=== PATIENT | male | born 1985 | race Two or more races ===

== ENCOUNTER 2018-06-14 16:29 | Inpatient (IN) | payer OTHER ==
[~2018-06-14] VITALS: Ht 188 cm; Wt 58.1 kg
[2018-06-14 17:00] VITALS: BP 114/84
[2018-06-14] MEDS ORDERED: ACETAMINOPHEN 325 MG TABLET PO PRN (17:30)
[2018-06-14] MEDS: IV D5/0.45 NACL 1,000 ML IV PRN (17:54)
[2018-06-14] MEDS ORDERED: DIATR MEGLU/DIATRIZOATE SODIUM 120 ML BOTTLE (GASTROGRAPHIN) ONE (18:30)
[2018-06-14] MEDS ORDERED: BARIUM SULFATE 98% 135 ML SUSP.RECON PO ONE (18:30)
[2018-06-14] MEDS ORDERED: MESA0.37 PO (18:31)
[2018-06-14] MEDS ORDERED: APIX5TAB PO (18:31)
[2018-06-14] MEDS ORDERED: AZAT50TA18 PO (18:31)
[2018-06-14] MEDS ORDERED: HYDR-4384 PO (18:31)
[2018-06-14] MEDS ORDERED: PRED20TA PO (18:31)
[2018-06-14] MEDS ORDERED: CHOL100040 PO (18:31)
[2018-06-14] MEDS ORDERED: FAMO20TA8 PO (18:31)
[2018-06-14] MEDS ORDERED: DOCU100C36 PO (18:31)
--- NOTE | 2018-06-14 18:38 | NUR ---
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 PATIENT A/OX4, BREATHING EVEN AND UNLABORED, DENIES NAUSEA OR VOMITING, NO ABDOMINAL PAIN AT THIS TIME. COMFORTABLE. PIV NOTED ON RIGHT HAND AND RIGHT AC. SKIN ASSESSMENT COMPLETED, SKIN PHOTOS TAKEN AND PLACED IN CHART. XR SMALL BOWEL FOLLOW THROUGH XSTILL PENDING, PER DR. TAVARES, HAVE PATIENT TRY ORAL CONTRAST FIRST IF UNABLE TO TOLERATE, TO INSERT NGT. NEEDS ATTENDED AND MET, CALL LIGHT WITHIN REACH, WILL ENDORSE TO CEREAL SUPERVISOR FOR GELA.
[2018-06-14 20:00] VITALS: BP 119/95
[2018-06-14] MEDS: ONDANSETRON HCL/PF 4 MG/2 ML VIAL IVP PRN (20:00)
[2018-06-14] MEDS: HYDROMORPHONE INJ 2 MG/ML DISP.SYRIN IV PRN (20:01)
--- NOTE | 2018-06-14 20:28 | NUR ---
MS/RN RECEIVE PATIENT AWAKE, ALERT, ORIENTED, WITH C/O ABDOMINAL PAIN 8/10, MEDICATED WITH DILAUDID 1 MG IV ORDERED. WILL MONITOR.
[2018-06-15] MEDS: HYDROMORPHONE INJ 2 MG/ML DISP.SYRIN IV PRN ×5 (01:47→22:10)
[2018-06-15] MEDS: IV D5/0.45 NACL 1,000 ML IV PRN ×2 (06:50→17:48)
[2018-06-15 07:02] LABS: BASOPHILS % (AUTO) 0.1 % (0.0-2.0); EOSINOPHILS % (AUTO) 0.9 % (0.0-6.0); HEMATOCRIT 26 % (39-51); HEMOGLOBIN 8.6 g/dL (13.5-17.5); LYMPHOCYTES # (AUTO) 1.4 /CMM (0.8-4.8); LYMPHOCYTES % (AUTO) 30.3 % (20.0-44.0); MEAN CORPUSCULAR HGB CONC 34 g/dl (31.0-36.0); MEAN CORPUSCULAR VOLUME 100 fL (80-96); MONOCYTES # (AUTO) 0.3 /CMM (0.1-1.30); NEUTROPHILS # (AUTO) 2.9 /CMM (1.8-8.9); NEUTROPHILS % (AUTO) 61.7 % (43.0-81.0); PLATELET COUNT (AUTO) 279 /CMM (150-450); RED BLOOD CELL COUNT(AUTO) 2.58 MIL/uL (4.5-6.0); WHITE BLOOD COUNT (AUTO) 4.8 K/uL (4.3-11.0)
[2018-06-15 07:09] LABS: BILIRUBIN,TOTAL 0.3 mg/dL (0.2-1.0); CALCIUM, SERUM 7.3 mg/dL (8.5-10.1); CREATININE 0.5 mg/dL (0.6-1.3); MAGNESIUM 1.9 mg/dL (1.8-2.4); POTASSIUM 3.3 mmol/L (3.5-5.1); TOTAL PROTEIN, SERUM 3.9 g/dL (6.4-8.2)
[2018-06-15 07:19] LABS: THYROID STIMULATING HORMONE 4.651 uIU/mL (0.358-3.74)
[2018-06-15 07:33] LABS: ALBUMIN 1.1 g/dL (3.4-5.0)
--- NOTE | 2018-06-15 07:35 | NUR ---
MS2/RN PATIENT IS AWAKE, COMFORTABLE, NO DISTRESS NOTED, NGT IN PLACE, NO OUTPUT NOTED, ALL NEEDS ATTENDED AT THIS TIME, WILL CONTINUE TO MONITOR.
[2018-06-15 08:00] VITALS: BP 104/77
--- NOTE | 2018-06-15 08:04 | NUR ---
RN NOTES PATIENT A/OX4, NGT OPEN TO AIR, STILL NO OUTPUT AT THIS TIME, PATIENT KEPT NPO, DENIES N/V OR ABDOMINAL PAIN AT THIS TIME. IVF INFUSING AND TOLERATING WELL, NEEDS ATTENDED AND MET, CALL LIGHT WITHIN REACH, WILL CONTINUE TO MONITOR.
[2018-06-15] MEDS ORDERED: POTASSIUM CHLORIDE 20 MEQ TAB.PRT.SR PO SCH (10:00)
[2018-06-15] MEDS: POTASSIUM CL. PREMIX PERIPHER. 50 ML IV SCH ×2 (10:40→11:39)
--- NOTE | 2018-06-15 10:55 | NUR ---
RN NOTES CALLED DR. HUNTER AND RELAYED XR BOWEL SERIES RESULT AND RECEIVED NEW ORDER FOR LOW INTERMITTENT SUCTION. ORDER NOTED AND CARRIED OUT.
[2018-06-15] MEDS ORDERED: TPN/PPN PER PHARMACY XX PRN (12:30)
[2018-06-15] MEDS ORDERED: FAT EMULSION 20% 500 ML in PREMIX 1 EA IV PRN (13:00)
[2018-06-15] MEDS: ALBUMIN 25% 25 GM in PREMIX 1 EA IV SCH ×2 (13:42→19:59)
[2018-06-15] MEDS: PANTOPRAZOLE 40 MG VIAL IV SCH (14:54)
[2018-06-15] MEDS ORDERED: METOCLOPRAMIDE HCL 10 MG/2 ML VIAL IV SCH (15:00)
[2018-06-15 16:00] VITALS: BP 111/78
--- NOTE | 2018-06-15 18:55 | NUR ---
RN NOTES PATIENT WITH NEWLY INSERTED PICC LINE ON CONNER. PATENT AND FLUSHES WELL. KEPT NPO FOR SURGERY TOMORROW WITH DR. HUNTER. CONSENTS SIGNED. TURNED AND REPOSITIONED EVERY2 HOURS, MISHEL. HEELS, ELBOWS, SACRAL COVERED WITH MEPILEX. IVF INFUSING AND TOLERATING WELL, NGT CURRENTLY ON LOW INTERMITTENT SUCTION WITH OUTPUT OF 100CC OF GREEN GASTRIC CONTENT. PATIENT DENIES N/V. NEEDS ATTENDED AND MET, CALL LIGHT WITHIN REACH, WILL ENDORSE TO SPEECH THERAPY TEACHER FOR GELA.
--- NOTE | 2018-06-15 19:04 | NUR ---
RN NOTES RECEIVED PT AWAKE, HOB ELEVATED, ON ROOM AIR AND TOLERATED WELL. PAIN ON ABDOMEN AT TOLERABLE LEVEL AT THIS TIME, /. DENIES NAUSEA AND VOMITING. NGT INTACT TO LOW INTERMITTENT SUCTION WITH GREENISH SECRETIONS NOTED. PICC LINE ON RIGHT UPPER ARM PATENT AND INTACT WITH ONGOING IVF INFUSING WELL. ABDOMEN SLIGHTLY DISTENDED. BOTH LOWER LEG ELEVATED ON PILLOWS. SAFETY MEASURES AND FALL PRECAUTION OBSERVED, WITH CALL LIGHT WITHIN REACH. KEPT COMFORTABLE AND ATTENDED. WILL CONTINUE TO MONITOR PATIENT.
[2018-06-15 20:00] VITALS: BP 118/83
--- NOTE | 2018-06-15 21:10 | NUR ---
RN NOTES PATIENT COMPLAINS OF PAIN ON HIS ABDOMEN AND BOTH LEGS, DILAUDID 1 MG GIVEN IVP. ALSO PATIENT VERBALIZES HE'S NAUSEATED, ZOFRAN 4 MG GIVEN IVP. WILL CONTINUE TO MONITOR PATIENT. Addendum: 06/15/18 at 7904 by JONATHAN GALVAN RN WRONG TIME OF ENTRY.
[2018-06-15 22:00] VITALS: BP 118/83
[2018-06-15] MEDS: ONDANSETRON HCL/PF 4 MG/2 ML VIAL IVP PRN (22:10)
--- NOTE | 2018-06-15 22:10 | NUR ---
RN NOTES PATIENT COMPLAINS OF PAIN ON HIS ABDOMEN AND BOTH LEGS, DILAUDID 1 MG GIVEN IVP. ALSO PATIENT VERBALIZES HE'S NAUSEATED, ZOFRAN 4 MG GIVEN IVP. WILL CONTINUE TO MONITOR PATIENT.
[2018-06-16] MEDS: ALBUMIN 25% 25 GM in PREMIX 1 EA IV SCH ×2 (01:22→08:18)
[2018-06-16] MEDS: HYDROMORPHONE INJ 2 MG/ML DISP.SYRIN IV PRN ×5 (02:11→22:01)
--- NOTE | 2018-06-16 02:11 | NUR ---
RN NOTES PATIENT COMPLAINS OF ABDOMINAL PAIN, DILAUDID 1 MG GIVEN IVP. WILL CONTINUE TO MONITOR.
--- NOTE | 2018-06-16 06:18 | NUR ---
RN NOTES PATIENT COMPLAINS OF ABDOMINAL PAIN, 02/15. DILAUDID 1MG GIVEN IVP. WILL CONTINUE TO MONITOR PT.
[2018-06-16] MEDS: IV D5/0.45 NACL 1,000 ML IV PRN (06:19)
--- NOTE | 2018-06-16 07:00 | NUR ---
RN NOTES PATIENT ASLEEP, BREATHING REGULAR AND UNLABORED, ON ROOM AIR AND TOLERATED WELL. KEPT NPO, NGT INTACT TO LOW INTERMITTENT SUCTION . KEPT PAIN AT TOLERABLE LEVEL WITH CURRENT REGIMEN. FOR SURGERY TODAY AT 1100, CONSENT SIGNED. ALL NEEDS ATTENDED. WILL ENDORSE TO MORNING RN FOR CONTINUITY OF CARE.
[2018-06-16 07:18] LABS: CALCIUM, SERUM 7.3 mg/dL (8.5-10.1); CREATININE 0.4 mg/dL (0.6-1.3); MAGNESIUM 1.8 mg/dL (1.8-2.4); PHOSPHORUS 2.2 mg/dL (2.5-4.9)
[2018-06-16 08:00] VITALS: BP 113/90
--- NOTE | 2018-06-16 08:00 | NUR ---
MS RN NOTES PATIENT IN BED RESTING ALERT, ORIENTED X3. PATIENT DENIES ANY PAIN OR DISCOMFORT. BED IN LOW LOCKED POSITION. CALL LIGHT WITHIN REACH. PICC LINE INTACT PATENT. WILL CONTINUE TO MONITOR.
--- NOTE | 2018-06-16 08:47 | NUR ---
WOUND CARE CONSULT: PT PRESENTS WITH SCARRING TO SACRUM AND BILATERAL ELBOWS, PRESENT ON ADMISSION. DRY FLAKY SKIN NOTED TO LOWER EXTREMITIES WELL PITTING EDEMA, ESPECIALLY RT ANKLE AREA. RECOMMENDATIONS MADE FOR SKIN PROTECTION. DISCUSSED WITH NURSING STAFF. WILL SEE PRN. CURRENT [place] SCORE IS 11. [facility] L[facility] AIRLOSS BED TO BE PLACED. MD IN AGREEMENT WITH PLAN OF CARE. Addendum: 06/16/18 at 0849 by CALIN VEGA WNDNU Amended: Links added.
[2018-06-16] MEDS: POTASSIUM CL. PREMIX PERIPHER. 50 ML IV SCH ×5 (11:41→16:55)
[2018-06-16] MEDS ORDERED: TPN/PPN PER PHARMACY XX PRN (12:00)
[2018-06-16] MEDS ORDERED: TPN BAG #2 IV PRN ×6 (13:30)
[2018-06-16] MEDS ORDERED: DEXTROSE 50%-WATER 50 ML DISP.SYRIN IV PRN (14:00)
[2018-06-16] MEDS ORDERED: INSULIN REGULAR, HUMAN 100 UNIT/ML 3 ML VIAL SQ PRN (14:00)
[2018-06-16] MEDS ORDERED: FEE TPN 1 MIN EA MC ONE (14:15)
[2018-06-16] MEDS: PANTOPRAZOLE 40 MG VIAL IV SCH (15:52)
[2018-06-16 16:00] VITALS: BP 113/79
[2018-06-16] MEDS ORDERED: TPN BAG #1 IV PRN ×8 (16:00)
[2018-06-16] MEDS: BLOOD SUGAR DIAGNOSTIC 1 EACH STRIP IN SCH ×2 (17:57→23:21)
--- NOTE | 2018-06-16 19:29 | NUR ---
MS RN NOTES PATIENT IN BED RESTING NO SOB OR ACUTE DISTRESS NOTED. PATIENT IN BED RESTING COMFORTABLE. ALL DUE MEDICATIONS ADMINISTERED. ALL NEEDS MET. PATIENT STARTED ON TPN. ENDORSED CARE TO PM SHIFT.
--- NOTE | 2018-06-16 19:50 | NUR ---
MS RN NOTE: PATIENT RESTING IN BED, NO ACUTE DISTRESS NOTED. BREATHING EVEN AND UNLABORED, NO SOB NOTED. PICC LINE IN PLACE, INFUSING TPN AT 50 ML/HR. NGT IN PLACE, WITH LOW INTERMITTENT SUCTION. HOB ELEVATED. BED LOCKED AND IN LOWEST POSITION, CALL LIGHT IN REACH. WILL CONTINUE TO MONITOR.
[2018-06-16 20:00] VITALS: BP 108/73
--- NOTE | 2018-06-16 22:10 | NUR ---
MS RN NOTE: PATIENT COMPLAINS OF ABDOMINAL PAIN 01/16, DILAUDID 1MG IV GIVEN PER MD ORDER. WILL CONTINUE TO MONITOR.
--- NOTE | 2018-06-16 23:20 | NUR ---
MS LEONE NOTE: PATIENT BLOOD SUGAR LEVEL 83MG/DL, NO INSULIN NEEDED PER SLIDING SCALE. NO S/S OF HYPER/HYPOGLYCEMIA NOTED. WILL CONTINUE TO MONITOR. Addendum: 06/17/18 at 0620 by LIANNA KRISHNAMURTHY RN PATIENT TPN INCREASE TO 75ML/HR.
[2018-06-17] VITALS (10 sets, daily range): BP systolic 103–116; BP diastolic 73–88
[2018-06-17] MEDS: ONDANSETRON HCL/PF 4 MG/2 ML VIAL IVP PRN (03:10)
[2018-06-17] MEDS: HYDROMORPHONE INJ 2 MG/ML DISP.SYRIN IV PRN (03:10)
--- NOTE | 2018-06-17 03:20 | NUR ---
MS RN NOTE: PATIENT COMPLAINS OF ABDOMINAL PAIN 9/10, DILAUDID 1MG IV GIVEN PER MD ORDER. PATIENT ALSO COMPLAINS OF NAUSEA, ZOFRAN 4MG IV GIVEN PER MD ORDER. WILL CONTINUE TO MONITOR.
[2018-06-17] MEDS: BLOOD SUGAR DIAGNOSTIC 1 EACH STRIP IN SCH ×4 (06:09→23:47)
--- NOTE | 2018-06-17 06:15 | NUR ---
MS RN NOTE: PATIENT RESTING IN BED, NO ACUTE DISTRESS NOTED. BREATHING EVEN AND UNLABORED, NO SOB NOTED. PICC LINE IN PLACE, INFUSING TPN AT 75 ML/HR. NGT IN PLACE, WITH LOW INTERMITTENT SUCTION WITH GREEN DRAINAGE. HOB ELEVATED. PATIENT FOR SURGERY THIS MORNING, PATIENT HAD BEEN NPO, CONSENT SIGNED AND IN CHART. PATIENT BLOOD SUGAR LEVEL 85MG/DL, NO INSULIN NEEDED PER SLIDING SCALE. BED LOCKED AND IN LOWEST POSITION, CALL LIGHT IN REACH. WILL ENDORSE TO DAY NURSE TO CONTINUE WITH PLAN OF CARE.
[2018-06-17] MEDS ORDERED: MIDAZOLAM HCL 2 MG/2ML VIAL ONE (07:00)
[2018-06-17] MEDS ORDERED: FENTANYL PF 100MCG/2ML AMPUL ONE ×2 (07:01)
[2018-06-17] MEDS ORDERED: MEPERIDINE HCL/PF 100 MG/ML DISP.SYRIN ONE (07:02)
[2018-06-17] MEDS ORDERED: ROCURONIUM BROMIDE 50 MG/5 ML ONE (07:02)
[2018-06-17] MEDS ORDERED: FAMOTIDINE/PF INJ 20 MG/2 ML VIAL IV ONE (07:03)
[2018-06-17 07:06] LABS: ALBUMIN 2.2 g/dL (3.4-5.0); CALCIUM, SERUM 7.7 mg/dL (8.5-10.1); CREATININE 0.4 mg/dL (0.6-1.3); MAGNESIUM 1.7 mg/dL (1.8-2.4); PHOSPHORUS 2.4 mg/dL (2.5-4.9); POTASSIUM 3.3 mmol/L (3.5-5.1)
[2018-06-17 07:08] LABS: PREALBUMIN 13.9 MG/DL (18.0-35.7)
[2018-06-17] MEDS ORDERED: ANESTHESIA TRAY IN PYXIS 1 EA TRAY MC ONE (07:13)
[2018-06-17] MEDS ORDERED: LIDOCAINE HCL/PF 1% 30 ML SDV ONE (07:13)
[2018-06-17] MEDS ORDERED: BUPIVACAINE 0.5 % PF 150 MG/30 ML VIAL ONE (07:13)
[2018-06-17] MEDS ORDERED: BUPIVACAINE MPF 0.5% W/EPI INJ 30 ML VIAL ONE (07:13)
--- NOTE | 2018-06-17 07:46 | NUR ---
MS/RN NOTES PATIENT IN SURGERY AT THIS TIME.
[2018-06-17] MEDS ORDERED: METRONIDAZOLE 500MG/ NS 100ML 100 ML IV ONE (08:10)
[2018-06-17] MEDS ORDERED: METOCLOPRAMIDE HCL 10 MG/2 ML VIAL IV PRN (11:00)
[2018-06-17] MEDS ORDERED: TPN BAG #2 IV PRN ×6 (11:17)
[2018-06-17] MEDS ORDERED: TPN BAG #3 IV PRN ×8 (11:30)
--- NOTE | 2018-06-17 11:30 | NUR ---
MS/RN PATIENT RETURNED FROM SURGERY ACCOMPANIED BY 2 RNS VIA BED. STILL NOTED PATIENT LETHARGIC, ABLE TO ANSWER YES OR NO QUESTION WITH HEAD NODDING. NOTED WITH NG TUBE IN PLACE FOR SUCTION, ATTACHED TO SUCTIONING MACHINE. F/C IN PLACE INTACT AND DRAINING WELL. NOTED WITH KLEBER DRAINAGE, DRAINING SEROSANGINOUS FLUID. ALL NEEDS ATTENDED TO AT THIS TIME. V/S 104/75,84,18,97.8,100%
[2018-06-17 11:44] LABS: EOSINOPHILS % (AUTO) 0.5 % (0.0-6.0); HEMATOCRIT 23 % (39-51); HEMOGLOBIN 7.5 g/dL (13.5-17.5); LYMPHOCYTES # (AUTO) 1.4 /CMM (0.8-4.8); LYMPHOCYTES % (AUTO) 29.7 % (20.0-44.0); MEAN CORPUSCULAR HGB CONC 33 g/dl (31.0-36.0); MEAN CORPUSCULAR VOLUME 100 fL (80-96); MONOCYTES # (AUTO) 0.3 /CMM (0.1-1.30); MONOCYTES % (AUTO) 6.7 % (2.0-12.0); NEUTROPHILS # (AUTO) 2.9 /CMM (1.8-8.9); NEUTROPHILS % (AUTO) 62.1 % (43.0-81.0); PLATELET COUNT (AUTO) 289 /CMM (150-450); RED BLOOD CELL COUNT(AUTO) 2.25 MIL/uL (4.5-6.0); WHITE BLOOD COUNT (AUTO) 4.6 K/uL (4.3-11.0)
--- NOTE | 2018-06-17 12:21 | NUR ---
MS/RN RECEIVED ORDER FROM DR HUNTER TO TRANSFUSE 2ND UNIT OF BLOOD WHEN PATIENT BACK ON FLOOR AFTER SURGERY. ORDERS NOTED AND CARRIED OUT.
[2018-06-17] MEDS ORDERED: POTASSIUM CL. PREMIX PERIPHER. 50 ML IV SCH (13:00)
[2018-06-17] MEDS: HYDROMORPHONE INJ 0.5 MG/0.5 ML SYRINGE IV PRN ×3 (15:33→22:34)
[2018-06-17] MEDS: ANCEF 1 GM/50 ML D5W IV SCH ×4 (16:40→23:40)
[2018-06-17] MEDS: PANTOPRAZOLE 40 MG VIAL IV SCH (16:42)
[2018-06-17] MEDS: IV D5/0.45 NACL 1,000 ML IV PRN (16:47)
[2018-06-17 17:35] LABS: HEMOGLOBIN 10.4 g/dL (13.5-17.5); LYMPHOCYTES # (AUTO) 0.3 /CMM (0.8-4.8)
[2018-06-17 17:46] LABS: CALCIUM, SERUM 7.2 mg/dL (8.5-10.1); CREATININE 0.5 mg/dL (0.6-1.3); POTASSIUM 3.3 mmol/L (3.5-5.1)
[2018-06-17] MEDS: METRONIDAZOLE 500MG/ NS 100ML 500 MG in PREMIX 1 EA IV SCH (18:03)
[2018-06-17 18:46] LABS: BASOPHILS % (AUTO) 0.1 % (0.0-2.0); HEMATOCRIT 31 % (39-51); LYMPHOCYTES % (AUTO) 1.9 % (20.0-44.0); MEAN CORPUSCULAR HGB CONC 33 g/dl (31.0-36.0); MEAN CORPUSCULAR VOLUME 92 fL (80-96); MONOCYTES # (AUTO) 0.3 /CMM (0.1-1.30); MONOCYTES % (AUTO) 1.5 % (2.0-12.0); NEUTROPHILS # (AUTO) 16.7 /CMM (1.8-8.9); NEUTROPHILS % (AUTO) 96.5 % (43.0-81.0); PLATELET COUNT (AUTO) 222 /CMM (150-450); RED BLOOD CELL COUNT(AUTO) 3.38 MIL/uL (4.5-6.0); WHITE BLOOD COUNT (AUTO) 17.3 K/uL (4.3-11.0)
--- NOTE | 2018-06-17 19:00 | NUR ---
Alert and orientated [employer] monse introduced and noted he did up to 1000ml, encouraged, JPRATT emptied 60 reactivated, NGT to low suction drainage green lite in color. ABD flat no BS audible via auscultation. Remains NPO
--- NOTE | 2018-06-17 19:05 | NUR ---
MS/RN CLOSING NOTE PATIENT IN BED IN STABLE CONDITION. A/O X 4. NO SIGNS OF ACUTE DISTRESS. NO COMPLAIN OF PAIN OR DISCOMFORT. ON NGT SUCTION FOR GASTRIC DECOMPRESSION. NOTED ABDOMEN KLEBER DRAINAGE. FC INTACT AND FLOWING FREELY. ALL NEEDS ATTENDED TO. CALL LIGHT WITHIN REACH. WILL ENDORSE TO NEXT SHIFT FOR CONTINUITY OF CARE.
[2018-06-17 21:50] LABS: BAND % (MANUAL) 15 % (0.0-5.0); LYMPHOCYTES % (MANUAL) 5 % (16-48); MONOCYTES % (MANUAL) 1 % (0-11.0); NEUTROPHILS % (MANUAL) 79 (42-76)
[2018-06-17] MEDS: MINERAL OIL/PETROLATUM,WHITE 120 GM JAR TP PRN (23:38)
[2018-06-17] MEDS: Z GUARD REMEDY 2 OZ OINT TP PRN (23:39)
[2018-06-18] MEDS: METRONIDAZOLE 500MG/ NS 100ML 500 MG in PREMIX 1 EA IV SCH ×2 (00:42→09:25)
[2018-06-18] MEDS: HYDROMORPHONE INJ 0.5 MG/0.5 ML SYRINGE IV PRN ×5 (00:49→15:32)
[2018-06-18 01:21] LABS: BASOPHILS % (AUTO) 0.4 % (0.0-2.0); HEMATOCRIT 28 % (39-51); HEMOGLOBIN 9.4 g/dL (13.5-17.5); LYMPHOCYTES # (AUTO) 1.4 /CMM (0.8-4.8); LYMPHOCYTES % (AUTO) 10.4 % (20.0-44.0); MEAN CORPUSCULAR HGB CONC 33 g/dl (31.0-36.0); MEAN CORPUSCULAR VOLUME 92 fL (80-96); MONOCYTES # (AUTO) 0.5 /CMM (0.1-1.30); MONOCYTES % (AUTO) 3.4 % (2.0-12.0); NEUTROPHILS # (AUTO) 11.7 /CMM (1.8-8.9); NEUTROPHILS % (AUTO) 85.8 % (43.0-81.0); PLATELET COUNT (AUTO) 209 /CMM (150-450); RED BLOOD CELL COUNT(AUTO) 3.08 MIL/uL (4.5-6.0); WHITE BLOOD COUNT (AUTO) 13.6 K/uL (4.3-11.0)
[2018-06-18] MEDS: BLOOD SUGAR DIAGNOSTIC 1 EACH STRIP IN SCH ×3 (06:03→18:20)
--- NOTE | 2018-06-18 06:25 | NUR ---
ending notes: alert and orientated. medicated times3 for abd pain thru the night last dose 0600. he commented the pain medication not enough, will endorse to the on coming shift to ask the md to assess patient. i noticed after medicatedcating him, he would fall asleep. casimiro put out 140ml sersang to clear yellow toward morning. ngt output 100ml this 12 hours green in color
--- NOTE | 2018-06-18 07:43 | NUR ---
RN MS OPENING NOTES RECEIVED PATIENT A/O X4 IN BED ON ROOM AIR NO SIGNS OR SYMPTOMS OF RESPIRATORY DISTRESS ACUTE PAIN OF 10/10 TO ABDOMEN LAST DILAUDID @ 0600. NGT CONNECTED TO INTERMITTENT SUCTION GREEN BILE IN CANISTER. GIRON CATH DRAINING CLEAR YELLOW URINE.SAFETY PRECAUTIONS IN PLACE BED IN LOW POSITION CALL LIGHT WITHIN REACH
[2018-06-18 08:00] VITALS: BP 108/71
[2018-06-18 08:06] LABS: BASOPHILS % (AUTO) 0.1 % (0.0-2.0); EOSINOPHILS % (AUTO) 0.2 % (0.0-6.0); HEMATOCRIT 27 % (39-51); HEMOGLOBIN 8.8 g/dL (13.5-17.5); LYMPHOCYTES # (AUTO) 1.9 /CMM (0.8-4.8); LYMPHOCYTES % (AUTO) 15.3 % (20.0-44.0); MEAN CORPUSCULAR HGB CONC 33 g/dl (31.0-36.0); MEAN CORPUSCULAR VOLUME 92 fL (80-96); MONOCYTES # (AUTO) 0.5 /CMM (0.1-1.30); NEUTROPHILS % (AUTO) 80.4 % (43.0-81.0); PLATELET COUNT (AUTO) 211 /CMM (150-450); RED BLOOD CELL COUNT(AUTO) 2.87 MIL/uL (4.5-6.0); WHITE BLOOD COUNT (AUTO) 12.5 K/uL (4.3-11.0)
[2018-06-18] MEDS: ANCEF 1 GM/50 ML D5W IV SCH ×2 (08:15)
[2018-06-18 08:34] LABS: CALCIUM, SERUM 7.6 mg/dL (8.5-10.1); CREATININE 0.5 mg/dL (0.6-1.3); MAGNESIUM 2.1 mg/dL (1.8-2.4); PHOSPHORUS 2.8 mg/dL (2.5-4.9); POTASSIUM 3.8 mmol/L (3.5-5.1)
[2018-06-18] MEDS: ENOXAPARIN SODIUM 40 MG/0.4 ML DISP.SYRIN SQ SCH (09:24)
[2018-06-18] MEDS ORDERED: TPN BAG #5 IV PRN ×8 (11:30)
[2018-06-18] MEDS: TPN BAG #4 IV PRN ×12 (11:52→22:25)
--- NOTE | 2018-06-18 11:57 | NUR ---
MS NOTES TPN CHANGED TO 100ML/HR PER ORDER FOR NUTRITIONAL INTAKE BS 114 MG/DL
[2018-06-18] MEDS: PANTOPRAZOLE 40 MG VIAL IV SCH (15:32)
[2018-06-18] MEDS: FAT EMULSION 20% 500 ML in PREMIX 1 EA IV SCH (15:32)
[2018-06-18] MEDS: HYDROMORPHONE 1 MG/1 ML DISP.SYRIN IV PRN ×2 (15:57→19:45)
[2018-06-18 16:00] VITALS: BP 111/76
--- NOTE | 2018-06-18 18:00 | NUR ---
GIRON CATH REMOVED NO S/S OF BLEEDING OR BLEEDING NOTED. URINAL GIVEN TO PATIENT
--- NOTE | 2018-06-18 19:00 | NUR ---
RN CLOSING NOTES PATIENT AWAKE IN BED A/O X4. NO SIGNS OR SYMPTOMS OF RESPIRATORY DISTRESS OR ACUTE PAIN . LAST DILAUDID GIVEN @ 1600 NEXT DUE 1999. SAT AT BEDSIDE WITH PT USING SPIROMETER WITH INSPIRATION OF 1500. 150 ML SERICIGENOUS DRAINAGE FROM KLEBER. MINIMAL DRAINAGE FORM NGT ON LOW INTERMITTENT SUCTION. REMAINS NPO. DRESSING DRAINING SMALL AMOUNTS OF BLOOD MD AWARE. SAFETY PRECAUTIONS IN PLACE BED IN LOW POSITION CALL LIGHT WITHIN REACH. GELA
[2018-06-18 20:00] VITALS: BP 116/77
[2018-06-19] MEDS: BLOOD SUGAR DIAGNOSTIC 1 EACH STRIP IN SCH ×4 (00:03→17:17)
[2018-06-19] MEDS: HYDROMORPHONE 1 MG/1 ML DISP.SYRIN IV PRN ×6 (00:03→21:38)
--- NOTE | 2018-06-19 03:15 | NUR ---
MS RN NOTES PT NOTED TO HAVE DISCOLORATION AT SACRAL AREA. POSSIBLE DTI. PT NON COMPLIANT WITH TURNING AND REPOSITIONING. PT REINSTRUCTED ON TURNING AND REPOSITIONING EVERY 2 HOURS AND NEEDED BUT PT REFUSING D/T TO POST OP PAIN UPON MOVEMENT. WILL CONTINUE TO MONITOR.
[2018-06-19] MEDS: ONDANSETRON HCL/PF 4 MG/2 ML VIAL IVP PRN (04:00)
--- NOTE | 2018-06-19 06:29 | NUR ---
MS RN NOTES AWAKE & RESPONSIVE. NOT IN ANY DISTRESS. NO SOB NOTED. DENIES ANY PAIN OR DISCOMFORT AT THIS TIME. WITH TPN & LIPIDS INFUSING WELL. AM CARE DONE. MONITORED ACCORDINGLY. CALL LIGHT WITHIN REACH. BED IN LOWEST POSITION. SR UP X 2 FOR SAFETY. WILL ENDORSE TO NEXT SHIFT.
[2018-06-19 06:43] LABS: BASOPHILS % (AUTO) 0.2 % (0.0-2.0); EOSINOPHILS % (AUTO) 0.4 % (0.0-6.0); HEMATOCRIT 24 % (39-51); LYMPHOCYTES # (AUTO) 1.4 /CMM (0.8-4.8); LYMPHOCYTES % (AUTO) 10.3 % (20.0-44.0); MEAN CORPUSCULAR HGB CONC 34 g/dl (31.0-36.0); MEAN CORPUSCULAR VOLUME 92 fL (80-96); MONOCYTES # (AUTO) 0.5 /CMM (0.1-1.30); NEUTROPHILS # (AUTO) 11.2 /CMM (1.8-8.9); NEUTROPHILS % (AUTO) 85.1 % (43.0-81.0); PLATELET COUNT (AUTO) 201 /CMM (150-450); RED BLOOD CELL COUNT(AUTO) 2.58 MIL/uL (4.5-6.0); WHITE BLOOD COUNT (AUTO) 13.2 K/uL (4.3-11.0)
[2018-06-19 07:07] LABS: CALCIUM, SERUM 7.1 mg/dL (8.5-10.1); CREATININE 0.4 mg/dL (0.6-1.3); PHOSPHORUS 1.8 mg/dL (2.5-4.9); POTASSIUM 3.6 mmol/L (3.5-5.1)
[2018-06-19 08:00] VITALS: BP 110/68
--- NOTE | 2018-06-19 08:00 | NUR ---
RN NOTES RECEIVED PATIENT IN THE BED A/A/O X4, PATIENT HAS NG TUBE ON LOW SUCTION, ALSO KLEBER -60 ML EMPTIED, PATIENT WAS COMPLAINING LOWER RIGHT SIDE PAIN OF ABDOMEN. PATIENT NPO. INFUSING LIPIDS ON RIGHT UPPER ARM INTACT PICC LINE, AND TPN. PATIENT HAS NO ACUTE RESPIRATORY DISTRESS, UNLABORED, V/S STABLE. BOWL SOUNDS HYPOACTIVE. CALL LIGHT WITHIN TI REACH, SAFETY PRECAUTION MAINTAINED ALL THE TIME.
--- NOTE | 2018-06-19 08:55 | NUR ---
RN NOTES ADMINISTERED DILAUDID 1 MG/ML IV PUSH FOR RIGHT LOWER SIDE OF ABDOMINAL PAIN PER PATIENT REQUEST 11/15, INFUSING NEW BAG OF TPN AT 100 ML/HR ON RIGHT UPPER PICC LINE, ABDOMINAL DRESSING INTACT, CALL LIGHT WITHIN TO REACH. CONTINUED MONITORING.
[2018-06-19] MEDS: ENOXAPARIN SODIUM 40 MG/0.4 ML DISP.SYRIN SQ SCH (09:02)
--- NOTE | 2018-06-19 12:01 | NUR ---
RN NOTES BS-98 MG/DL, NO COVEERAGE GIVEN, CLAMP NG TUBE PER DR KC'S ORDER IN 4 HR, IF RESIDUAL LESS THAN 100ML REMOVE NG TUBE, IF RESIDUAL GRADED THAN 100 CONTINUED SUCTIONING. PATIENT HAS EDEMA ON BILATERAL LOWER EXTREMITIES, USING PILLOW TO ELEVATED, CALL LIGHT WITHIN TO REACH, CONTINUED MONITORING.
--- NOTE | 2018-06-19 13:13 | NUR ---
RN NOTES ADMINISTERED DILAUDID 1 MG/ML IV PUSH FOR LOWER ABDOMINAL PAIN 12/16 PER PATIENT REQUEST, V/S TAKEN BP 118/70, P-70, CONTINUED MONITORING.
[2018-06-19] MEDS ORDERED: TPN BAG #6 IV PRN ×6 (14:00)
[2018-06-19] MEDS ORDERED: TPN BAG #7 IV PRN ×8 (14:00)
--- NOTE | 2018-06-19 15:30 | NUR ---
RN NOTES CONFECTED NG TUBE BACK LOW SUCTIONING, PATIENT STABLE, NO NAUSEA/VOMITING, MEDICATION WERE ADMINISTERED FOR PAIN EFFECTIVE. CONTINUED MONITORING.
[2018-06-19] MEDS: PANTOPRAZOLE 40 MG VIAL IV SCH (15:53)
[2018-06-19 16:00] VITALS: BP 115/78
--- NOTE | 2018-06-19 17:17 | NUR ---
RN NOTES ADMINISTERED DILAUDID 1 MG/ ML IV PUSH FOR RIGHT LOWER ABDOMINAL PAIN 11/15 PER PATIENT REQUEST. DAD NEXT TO THE BED, BS-95 MG/DL. CONTINUED MONITORING.
--- NOTE | 2018-06-19 17:33 | NUR ---
RN NOTES REMOVED NG TUBE AT TIS TIME RESIDUAL IS 80 ML, PATIENT TOLERATED WELL, NO SOB, NO NAUSEA/VOMITING, PATIENT SITTING IN THE BED, CALL LIGHT WITHIN TO REACH. SAFETY PRECAUTION MAINTAINED ALL THE TIME.
--- NOTE | 2018-06-19 18:30 | NUR ---
RN NOTES PATIENT STABLE, NO ACUTE RESPIRATORY DISTRESS, PATIENT NPO, INFUSING TPN ON RIGHT PICC LINE INTACT. PATIENT REFUSED NAUSEA/VOMITING, MEDICATION WERE ADMINISTERED EFFECTIVE. PATIENT SITTING IN THE BED. V/S STABLE. CALL LIGHT WITHIN TO REACH. ENDORSED ONCOMING NURSE FOR PLAN OF CARE.
--- NOTE | 2018-06-19 19:30 | NUR ---
RN MS CLOSING NOTES RECEIVED PT IN BED AWAKE ALERT ORIENTED X4 BREATHING EVEN AND UNLABORED ON ROOM AIR, NO COUGH, CONGESTION OR SOB NOTED. NO COMPLAINT OF PAIN OR DISCOMFORT AT THE MOMENT. RVA PICC LINE IN PLACE WITH TPN @100ML AND D5 1/2 NS @25ML/HR. TRISTAN GARNER IN PLACE DRAINING FLUID FROM L LOWER ABDOMEN. BED IN LOWEST LOCKED POSITION CINTHIA LIGHT WITHIN REACH AT ALL TIMES, WILL CONTINUE TO MONITOR.
[2018-06-19 20:00] VITALS: BP 115/76
[2018-06-20] MEDS: BLOOD SUGAR DIAGNOSTIC 1 EACH STRIP IN SCH ×4 (00:07→17:23)
[2018-06-20] MEDS: HYDROMORPHONE 1 MG/1 ML DISP.SYRIN IV PRN ×3 (01:30→09:35)
--- NOTE | 2018-06-20 06:40 | NUR ---
RN MS CLOSING NOTES PT PT REMAINS IN BED AWAKE ALERT ORIENTED X4 BREATHING EVEN AND UNLABORED ON ROOM AIR, NO COUGH, CONGESTION OR SOB NOTED. NO COMPLAINS OF PAIN 09/15. RVA PICC LINE IN PLACE WITH TPN @100ML BAG #6 AND D5 1/2 NS @25ML/HR. TRISTAN GARNER IN PLACE DRAINING FLUID FROM L LOWER ABDOMEN. BED IN LOWEST LOCKED POSITION CINTHIA LIGHT WITHIN REACH AT ALL TIMES, WILL CONTINUE TO MONITOR.
[2018-06-20 06:50] LABS: BASOPHILS % (AUTO) 0.4 % (0.0-2.0); EOSINOPHILS % (AUTO) 0.5 % (0.0-6.0); HEMATOCRIT 22 % (39-51); HEMOGLOBIN 7.4 g/dL (13.5-17.5); LYMPHOCYTES # (AUTO) 1.1 /CMM (0.8-4.8); LYMPHOCYTES % (AUTO) 11.3 % (20.0-44.0); MEAN CORPUSCULAR HGB CONC 34 g/dl (31.0-36.0); MEAN CORPUSCULAR VOLUME 93 fL (80-96); MONOCYTES # (AUTO) 0.5 /CMM (0.1-1.30); MONOCYTES % (AUTO) 5.5 % (2.0-12.0); NEUTROPHILS # (AUTO) 8.1 /CMM (1.8-8.9); NEUTROPHILS % (AUTO) 82.3 % (43.0-81.0); PLATELET COUNT (AUTO) 199 /CMM (150-450); RED BLOOD CELL COUNT(AUTO) 2.33 MIL/uL (4.5-6.0); WHITE BLOOD COUNT (AUTO) 9.9 K/uL (4.3-11.0)
[2018-06-20 07:04] LABS: CREATININE 0.4 mg/dL (0.6-1.3); MAGNESIUM 1.7 mg/dL (1.8-2.4); POTASSIUM 3.7 mmol/L (3.5-5.1)
--- NOTE | 2018-06-20 07:30 | NUR ---
RN OPENING NOTES RECEIVED PT IN BED AWAKE. ALERT AND ORIENTED X4, ABLE TO MAKE NEEDS KNOWN. TOLERATING ROOM AIR. NOT IN ANY FORM OF DISTRESS. NO SOB. NO COMPLAINT OF PAIN OR DISCOMFORT AT THE MOMENT. CONNER PICC LINE IN PLACE WITH TPN @100ML AND D5 1/2 NS @25ML/HR. TRISTAN GARNER IN PLACE DRAINING FLUID FROM L LOWER ABDOMEN. KEPT PATIENT SAFE AND COMFORTABLE. BED IN LOWEST LOCKED POSITION, CINTHIA LIGHT WITHIN REACH AT ALL TIMES, HOB ELEVATED. WILL CONTINUE TO MONITOR ACCORDINGLY.
[2018-06-20 08:00] VITALS: BP 113/69
[2018-06-20] MEDS: ENOXAPARIN SODIUM 40 MG/0.4 ML DISP.SYRIN SQ SCH (08:25)
[2018-06-20] MEDS: IV D5/0.45 NACL 1,000 ML IV PRN (09:40)
--- NOTE | 2018-06-20 11:00 | NUR ---
RN NOTES MEPILEX ON SACRUM IN PLACE
--- NOTE | 2018-06-20 11:04 | NUR ---
DR HUNTER AT BEDSIDE. NEW ORDERS OF DILAUDID 1.5MG PRN Q2HRS AND CLEAR LIQUID DIET NOTED AND WILL CARRY OUT
[2018-06-20] MEDS: Magnesium 1GM/D5W 100ML PREMIX 100 ML IV SCH ×3 (11:24→15:04)
--- NOTE | 2018-06-20 11:34 | NUR ---
EMPTY KLEBER DRAIN, 100CC OUTPUT.
--- NOTE | 2018-06-20 12:00 | NUR ---
RN NOTES SLITTER CUT OFF OPERATOR REPORTED THAT PATIENT DOESNT WANT TO BE REPOSITIONED BY SLITTER CUT OFF OPERATOR. PER SLITTER CUT OFF OPERATOR, PATIENT SAID HE CAN REPOSITION BY HIMSELF. WENT TO THE PATIENT AND ASK HIM IF WE CAN HELP HIM TO TURN AND REPOSITION. PATIENT SAID, "NAH, I CAN REPOSITION MYSELF." ENCOURAGED PATIENT TO BE REPOSITIONED EVERY 2HRS AND PRN FOR PRESSURE REDUCTION AND COMFORT. EXPLAINED RISKS AND BENEFITS OF REFUSAL. PATIENT SAID, "I CAN REPOSITION BY MYSELF, OK ILL CALL YOU IF I NEED HELP". WILL CONTINUE TO ENCOURAGE REPOSITIONING.
[2018-06-20] MEDS: HYDROMORPHONE INJ 0.5 MG/0.5 ML SYRINGE IV PRN ×5 (13:02→23:55)
--- NOTE | 2018-06-20 13:19 | NUR ---
EMPTY KLEBER DRAIN, 75CC OUTPUT
--- NOTE | 2018-06-20 14:00 | NUR ---
RN NOTES OFFERED TO BE TURNED AND REPOSITIONED. PATIENT REFUSED, "IM GOOD FOR NOW, MAYBE IN AWHILE". EXPLAINED RISKS AND BENEFITS AND EXPLAINED THE IMPORTANCE OF TURNING AND REPOSITIONING. WILL MONIOTR ACCORDINGLY.
--- NOTE | 2018-06-20 14:10 | NUR ---
EMPTY KLEBER DRAIN, 40CC OUTPUT
--- NOTE | 2018-06-20 14:27 | NUR ---
WOUND CARE CONSULT: PT PRESENTS WITH SACRAL DEEP TISSUE INJURY (INTACT) WELL SACRAL SCARRING WHICH WAS NOTED TO BE PRESENT ON ADMISSION. RECOMMENDATIONS MADE FOR SKIN PROTECTION AND WOUND CARE. DISCUSSED WITH NURSING STAFF. WILL SEE PRN. WAGGONER IN AGREEMENT WITH PLAN OF CARE. Addendum: 06/20/18 at 1428 by CALIN VEGA WNDNU Amended: Links added.
--- NOTE | 2018-06-20 15:00 | NUR ---
TRANSFERRED PATIENT TO ISOFLEX BED.
[2018-06-20] MEDS: PANTOPRAZOLE 40 MG VIAL IV SCH (15:33)
[2018-06-20 16:00] VITALS: BP 110/74
[2018-06-20] MEDS: FAT EMULSION 20% 500 ML in PREMIX 1 EA IV SCH (16:46)
--- NOTE | 2018-06-20 17:00 | NUR ---
RN NOTES PHYSICAL THERAPY WORKED WITH PATIENT. PATIENT STOOD UP AND WALKED A FEW STEPS. TOLERATED WELL.
--- NOTE | 2018-06-20 18:00 | NUR ---
KLEBER DRAIN EMPTIED, 100CC OUTPUT
--- NOTE | 2018-06-20 18:00 | NUR ---
OFFERED TO BE TURNED AND REPOSITIONED. PER PATIENT, "NAH, IM GOOD FOR NOW". REMINDED PATIENT TO ASK FOR HELP IF HE NEEDS REPOSITIONING, "OK" HE SAID. EXPLAINED RISKS AND BENIFITS, PATIENT UNDERSTOOD. WILL CONTINUE TO MONIOTR ACCORDINGLY.
--- NOTE | 2018-06-20 19:30 | NUR ---
RN CLOSING NOTES PATIENT IN STABLE CONDITION. ALL NEEDS ATTENDED AND PROVIDED. ALL DUE MEDICATIONS GIVEN ORDERED. KEPT PATIENT SAFE AND COMFORTABLE. BED IN LOW/LOCKED POSITION, SIDERAILS UPX2, HOB ELEVATED. CALL LIGHT IN REACH. ENDORSED TO NIGHT RN FOR GELA
--- NOTE | 2018-06-20 19:35 | NUR ---
RN MS OPENING NOTES RECEIVED PT IN BED AWAKE ALERT ORIENTED X4 BREATHING EVEN AND UNLABORED ON ROOM AIR, NO COUGH, CONGESTION OR SOB NOTED. NO COMPLAINT OF PAIN OR DISCOMFORT AT THE MOMENT. RVA PICC LINE IN PLACE WITH TPN @100ML, LIPIDS AND D5 1/2 NS @25ML/HR. TRISTAN GARNER IN PLACE DRAINING FLUID FROM L LOWER ABDOMEN. BED IN LOWEST LOCKED POSITION CINTHIA LIGHT WITHIN REACH AT ALL TIMES, WILL CONTINUE TO MONITOR.
[2018-06-20 20:00] VITALS: BP 120/77
[2018-06-20] MEDS ORDERED: TPN BAG # 8 IV PRN ×6 (20:00)
[2018-06-20] MEDS ORDERED: TPN BAG # 9 IV PRN ×8 (23:00)
[2018-06-20] MEDS: ZOLPIDEM TARTRATE 5 MG TABLET PO PRN (23:24)
[2018-06-21] MEDS: BLOOD SUGAR DIAGNOSTIC 1 EACH STRIP IN SCH ×4 (00:02→17:22)
[2018-06-21] MEDS: HYDROMORPHONE INJ 0.5 MG/0.5 ML SYRINGE IV PRN ×11 (02:05→21:29)
--- NOTE | 2018-06-21 06:22 | NUR ---
RN MS CLOSING NOTES RECEIVED PT IN BED AWAKE ALERT ORIENTED X4 BREATHING EVEN AND UNLABORED ON ROOM AIR, NO COUGH, CONGESTION OR SOB NOTED. PAIN 6/10 ON THE RIGHT LOWER QUADRANT. CONNER PICC LINE IN PLACE WITH TPN @100ML AND LIPIDS @25ML/HR. TRISTAN GARNER IN PLACE DRAINING FLUID FROM L LOWER ABDOMEN 450ML OF DRAINAGE. BED IN LOWEST LOCKED POSITION CINTHIA LIGHT WITHIN REACH AT ALL TIMES, WILL CONTINUE TO MONITOR.
[2018-06-21 07:08] LABS: BASOPHILS # (AUTO) 0.1 /CMM (0.0-0.2); BASOPHILS % (AUTO) 0.4 % (0.0-2.0); EOSINOPHILS % (AUTO) 1.2 % (0.0-6.0); HEMATOCRIT 25 % (39-51); HEMOGLOBIN 8.3 g/dL (13.5-17.5); LYMPHOCYTES # (AUTO) 1.3 /CMM (0.8-4.8); LYMPHOCYTES % (AUTO) 11.4 % (20.0-44.0); MEAN CORPUSCULAR HGB CONC 33 g/dl (31.0-36.0); MEAN CORPUSCULAR VOLUME 93 fL (80-96); MONOCYTES # (AUTO) 0.8 /CMM (0.1-1.30); MONOCYTES % (AUTO) 6.9 % (2.0-12.0); NEUTROPHILS # (AUTO) 9.3 /CMM (1.8-8.9); NEUTROPHILS % (AUTO) 80.1 % (43.0-81.0); PLATELET COUNT (AUTO) 250 /CMM (150-450); RED BLOOD CELL COUNT(AUTO) 2.67 MIL/uL (4.5-6.0); WHITE BLOOD COUNT (AUTO) 11.6 K/uL (4.3-11.0)
--- NOTE | 2018-06-21 07:10 | NUR ---
RN NOTES PATIENT A/OX4, BREATHING EVEN AND UNLABORED, NO SOB NOTED, DENIES PAIN AT THIS TIME. OFFERED TO BE REPOSITIONED BUT PER PATIENT, HE WAS JUST RECENTLY REPOSITIONED. PATIENT IS CURRENTLY ON TPN, AND INFUSING WELL. NEEDS ATTENDED, CALL LIGHT WITHIN REACH, WILL CONTINUE TO MONITOR.
[2018-06-21 07:32] LABS: CALCIUM, SERUM 7.3 mg/dL (8.5-10.1); CREATININE 0.3 mg/dL (0.6-1.3); PHOSPHORUS 2.2 mg/dL (2.5-4.9); POTASSIUM 3.4 mmol/L (3.5-5.1)
[2018-06-21 08:00] VITALS: BP 105/72
[2018-06-21] MEDS ORDERED: TPN BAG #9 IV PRN ×8 (08:24)
[2018-06-21] MEDS ORDERED: TPN BAG #10 IV PRN ×6 (08:30)
[2018-06-21] MEDS ORDERED: TPN BAG #11 IV PRN ×6 (08:30)
[2018-06-21] MEDS: ENOXAPARIN SODIUM 40 MG/0.4 ML DISP.SYRIN SQ SCH (08:51)
--- NOTE | 2018-06-21 11:30 | NUR ---
RN NOTES PATIENT SEEN BY DR. MARKS, CLARIFY IF PATIENT OK TO HAVE DVT PUMP ON BLE, PER MD, SCD'S ARE OK. ORDER IN PLACED. NOTED AND CARRIED OUT.
[2018-06-21] MEDS: PANTOPRAZOLE 40 MG VIAL IV SCH (14:35)
[2018-06-21 16:00] VITALS: BP 108/74
--- NOTE | 2018-06-21 18:11 | NUR ---
RN NOTES PATIENT A/OX4, BREATHING EVEN AND UNLABORED, NO SOB NOTED, KLEBER DRAINS WITH SEROUS OUTPUT, CURRENTLY ON TPN #9. LIPIDS ALMOST COMPLETE. PATIENT C/O ABDOMINAL PAIN, CURRENT PAIN MANAGEMENT IS EFFECTIVE. PATIENT ABLE TO TOLERATE CURRENT LIQUIDS. SEEN BY DR. HUNTER AND DIET CHANGED TO FULL LIQUID. NEEDS ATTENDED, TURNED AND REPOSITIONED EVERY 2 HOURS. CALL LIGHT WITHIN REACH, WILL ENDORSE TO UTILITY ARBORIST FOR GELA.
[2018-06-21 20:00] VITALS: BP 116/77
[2018-06-21] MEDS: ONDANSETRON HCL/PF 4 MG/2 ML VIAL IVP PRN (20:32)
[2018-06-22] MEDS: BLOOD SUGAR DIAGNOSTIC 1 EACH STRIP IN SCH ×5 (00:20→23:46)
[2018-06-22] MEDS: HYDROMORPHONE INJ 0.5 MG/0.5 ML SYRINGE IV PRN ×11 (00:20→23:05)
[2018-06-22] MEDS: ZOLPIDEM TARTRATE 5 MG TABLET PO PRN (00:20)
[2018-06-22] MEDS: ONDANSETRON HCL/PF 4 MG/2 ML VIAL IVP PRN ×3 (04:48→14:43)
--- NOTE | 2018-06-22 05:45 | NUR ---
MS RN NOTES PT CALLED AND STATED "I FELL." PT FOUND SITTING ON THE FLOOR. ASSISTED BACK TO BED. WITH ROAD SUPERVISOR AND CN. PT ABLE TO MOVE ALL EXTREMITIES OK. ROM OK. PT C/O LOWER BACK PAIN AND BOTH KNEE PAIN. PAGED AU PAIR FOR [employer]. AWAITING FOR RESPONSE.
--- NOTE | 2018-06-22 06:34 | NUR ---
MS RN NOTES BRETT NOTIFIED RE PT'S CONDITION. WITH NEW ORDERS MADE. ORDERS NOTED AND CARRIED OUT. WILL CONTINUE TO MONITOR.
--- NOTE | 2018-06-22 06:50 | NUR ---
MS RN NOTES AWAKE & RESPONSIVE. NOT IN ANY DISTRESS. NO SOB NOTED. DENIES ANY PAIN OR DISCOMFORT AT THIS TIME. WITH TPN INFUSING WELL. REINSTRUCTED WORT EXTRACTOR LIGHT USE. CALL LIGHT WITHIN REACH. BED IN LOWEST POSITION. SR UP X3 WITH BED ALARM ON FOR SAFETY. WILL ENDORSE TO NEXT SHIFT.
[2018-06-22 07:34] LABS: BASOPHILS # (AUTO) 0.1 /CMM (0.0-0.2); BASOPHILS % (AUTO) 0.7 % (0.0-2.0); EOSINOPHILS % (AUTO) 1.1 % (0.0-6.0); HEMATOCRIT 22 % (39-51); HEMOGLOBIN 7.3 g/dL (13.5-17.5); LYMPHOCYTES # (AUTO) 0.5 /CMM (0.8-4.8); LYMPHOCYTES % (AUTO) 5.8 % (20.0-44.0); MEAN CORPUSCULAR HGB CONC 34 g/dl (31.0-36.0); MEAN CORPUSCULAR VOLUME 92 fL (80-96); MONOCYTES # (AUTO) 0.9 /CMM (0.1-1.30); MONOCYTES % (AUTO) 9.4 % (2.0-12.0); NEUTROPHILS # (AUTO) 7.6 /CMM (1.8-8.9); PLATELET COUNT (AUTO) 238 /CMM (150-450); RED BLOOD CELL COUNT(AUTO) 2.37 MIL/uL (4.5-6.0); WHITE BLOOD COUNT (AUTO) 9.1 K/uL (4.3-11.0)
[2018-06-22 07:41] LABS: PREALBUMIN 8.1 MG/DL (18.0-35.7)
--- NOTE | 2018-06-22 07:45 | NUR ---
RN OPENING NOTES PT RECEIVED IN BED AT LOWEST AND LOCKED POSITION WITH SIDE RAILS UP X2, A/O X4, BREATHING EVEN AND UNLABORED, NO S/S OF PAIN OR DISTRESS NOTED AT THIS TIME, CONNER PICC IS PATENT AND INTACT, NOTED TO HAVE KLEBER DRAIN IN PLACE, SAFETY PRECAUTIONS IN PLACE, CALL LIGHT WITHIN REACH, WILL MONITOR ACCORDINGLY.
[2018-06-22 07:57] LABS: CALCIUM, SERUM 7.4 mg/dL (8.5-10.1); CREATININE 0.4 mg/dL (0.6-1.3); MAGNESIUM 1.7 mg/dL (1.8-2.4); PHOSPHORUS 2.9 mg/dL (2.5-4.9); POTASSIUM 3.9 mmol/L (3.5-5.1)
[2018-06-22 08:00] VITALS: BP 115/77
--- NOTE | 2018-06-22 08:19 | NUR ---
RN NOTE KLEBER DRAIN WAS DRAINED AT THIS TIME AND NOTED TO BE YELLOW WITH 75 ML NOTED
[2018-06-22] MEDS ORDERED: TPN BAG #13 IV PRN ×6 (08:30)
[2018-06-22] MEDS ORDERED: TPN BAG #12 IV PRN ×8 (08:30)
[2018-06-22] MEDS ORDERED: TPN BAG #14 IV PRN ×6 (08:30)
[2018-06-22] MEDS: ENOXAPARIN SODIUM 40 MG/0.4 ML DISP.SYRIN SQ SCH (08:57)
[2018-06-22] MEDS: Magnesium 1GM/D5W 100ML PREMIX 100 ML IV SCH ×2 (09:02→10:53)
--- NOTE | 2018-06-22 11:00 | NUR ---
RN NOTES KLEBER DRAIN WAS DRAINED AT THIS TIME WITH 80 ML OF SEROSANGUINEOUS FLUID NOTED
--- NOTE | 2018-06-22 12:39 | NUR ---
RN NOTE PT AT THIS TIME WAS CHANGED, GIVEN A BED BATH, AND REPOSITIONED. KLEBER WAS DRAINED AND NOTED TO HAVE 25 ML. WOUND DRESSING WAS ALSO CHANGED AT THIS TIME
[2018-06-22] MEDS: PANTOPRAZOLE 40 MG VIAL IV SCH (14:43)
[2018-06-22] MEDS: FAT EMULSION 20% 500 ML in PREMIX 1 EA IV SCH (14:43)
[2018-06-22 16:00] VITALS: BP 110/69
--- NOTE | 2018-06-22 18:31 | NUR ---
RN CLOSING NOTES PT IN BED AT LOWEST AND LOCKED POSITION, A/O X4, BREATHING EVEN AND UNLABORED ON RA, NO PAIN OR DISTRESS NOTED AT THIS TIME, CONNER PICC IS PATENT AND INTACT, NOTED TO HAVE KLEBER DRAIN IN PLACE WITH 180 ML DRAINED FOR TODAY, SAFETY PRECAUTIONS IN PLACE, CALL LIGHT WITHIN REACH, ALL NEEDS ATTENDED TO, WILL ENDORSE TO BODY ROLLING MACHINE TENDER FOR GELA.
--- NOTE | 2018-06-22 19:10 | NUR ---
RN NOTE DILAUDID GIVEN AT THIS TIME AND KLEBER DRAIN WAS DRAINED AND NOTED TO HAVE 100 ML OUTPUT
--- NOTE | 2018-06-22 19:50 | NUR ---
MS/RN OPENING NOTES RECEIVED PATIENT IN BED, AWAKE, REPORTED PAIN OF 4/10 AFTER DILAUDID IV WAS GIVE AT 1900. ALERT, ORIENTED X3, ABLE TO VERBALIZE NEEDS, INSTRUCTED TO USE CALL LIGHT FOR ASSISTANCE, INFORMED PLAN OF CARE WITH ROUNDING , BELONGINGS WITHIN REACH, RECEIVED REPORT FROM AM RN FOR GELA. IV TPN RUNNING AT 100ML/HR. REQUIRE ASSISTANCE DUE TO FALL, CONNER PICC LINE,WITH KLEBER DRAIN, WILL MONITOR.
[2018-06-22 20:00] VITALS: BP 116/77
--- NOTE | 2018-06-22 21:24 | NUR ---
PAIN MEDICATION REQUESTED BY PATIENT WITH PAIN LEVEL OF 7/10 IN ABDOMEN, DILAUDID 1.5ML/1.5MG GIVEN, AWAKE, ALERT, ABLE TO VERBALIZE NEEDS, WILL MONITOR PAIN RELIEF.
--- NOTE | 2018-06-23 | NUR ---
BS CHECK AT 68, PROVIDEDMJELLO AND CRANBERRY JUICE, TPN RUNNING.
[2018-06-23] MEDS: HYDROMORPHONE INJ 0.5 MG/0.5 ML SYRINGE IV PRN ×7 (02:58→23:48)
--- NOTE | 2018-06-23 03:00 | NUR ---
PAIN MEDICATION GIVEN FOR PAIN LEVEL 8/10. WILL MONITOR.
[2018-06-23] MEDS: BLOOD SUGAR DIAGNOSTIC 1 EACH STRIP IN SCH ×4 (06:25→22:22)
--- NOTE | 2018-06-23 06:36 | NUR ---
314-2 MS/RN NOTES PATIENT IN BED, ABLE TO MAKE NEEDS KNOWN AT ALL TIMES, SLEPT FEW HOURS, PAIN MONITORED FOR EFFECTIVENESS, ASSISTED AND FREQUENT ROUNDS, ALERT X3, VERBALIZED NEEDS AT ALL TIMES, RESPIRATIONS EVEN AND UNLABORED, TOLERATED FLUIDS.BED LOCKED, CALL LIGHTS WITHIN REACH, WILL MONITOR.
[2018-06-23 07:06] LABS: BASOPHILS # (AUTO) 0.1 /CMM (0.0-0.2); BASOPHILS % (AUTO) 0.7 % (0.0-2.0); EOSINOPHILS % (AUTO) 1.4 % (0.0-6.0); HEMATOCRIT 22 % (39-51); HEMOGLOBIN 7.5 g/dL (13.5-17.5); LYMPHOCYTES # (AUTO) 1.4 /CMM (0.8-4.8); LYMPHOCYTES % (AUTO) 13.6 % (20.0-44.0); MEAN CORPUSCULAR HGB CONC 34 g/dl (31.0-36.0); MEAN CORPUSCULAR VOLUME 92 fL (80-96); MONOCYTES # (AUTO) 1.1 /CMM (0.1-1.30); MONOCYTES % (AUTO) 10.5 % (2.0-12.0); NEUTROPHILS # (AUTO) 7.8 /CMM (1.8-8.9); NEUTROPHILS % (AUTO) 73.8 % (43.0-81.0); PLATELET COUNT (AUTO) 265 /CMM (150-450); RED BLOOD CELL COUNT(AUTO) 2.43 MIL/uL (4.5-6.0); WHITE BLOOD COUNT (AUTO) 10.6 K/uL (4.3-11.0)
[2018-06-23 07:59] LABS: CALCIUM, SERUM 7.5 mg/dL (8.5-10.1); CREATININE 0.3 mg/dL (0.6-1.3); POTASSIUM 3.9 mmol/L (3.5-5.1)
[2018-06-23 08:00] VITALS: BP 111/61
[2018-06-23 08:00] LABS: MAGNESIUM 1.8 mg/dL (1.8-2.4); PHOSPHORUS 2.5 mg/dL (2.5-4.9)
[2018-06-23] MEDS: ENOXAPARIN SODIUM 40 MG/0.4 ML DISP.SYRIN SQ SCH (08:53)
--- NOTE | 2018-06-23 10:44 | NUR ---
RN NOTE PT WALKED WITH PHYSICAL THERAPY AT THIS TIME
[2018-06-23] MEDS ORDERED: TPN BAG #15 IV PRN ×8 (12:00)
--- NOTE | 2018-06-23 12:00 | NUR ---
RN NOTE PT BLOOD GLUCOSE WAS NOTED TO BE 81 AT THIS TIME, NO INSULIN NEEDED OR GIVEN ACCORDING TO SLIDING SCALE
[2018-06-23] MEDS ORDERED: Magnesium 1GM/D5W 100ML PREMIX 100 ML IV SCH (13:00)
[2018-06-23] MEDS ORDERED: ENSURE ENLIVE CHOC 237 ML CAN PO SCH (13:00)
[2018-06-23] MEDS: MULTIVITAMINS,THERAGRAN 1 UDTAB TABLET PO SCH (13:33)
[2018-06-23] MEDS: THIAMINE HCL 100 MG TABLET PO SCH (13:33)
[2018-06-23] MEDS: ONDANSETRON HCL/PF 4 MG/2 ML VIAL IVP PRN (14:52)
[2018-06-23] MEDS: PANTOPRAZOLE 40 MG VIAL IV SCH (15:38)
[2018-06-23 16:00] VITALS: BP 130/79
[2018-06-23] MEDS ORDERED: DEXTROSE 50%-WATER 50 ML DISP.SYRIN IV PRN (16:30)
[2018-06-23] MEDS: ENSURE CLEAR 237 ML LIQUID (MIX BERRY) PO SCH (17:32)
--- NOTE | 2018-06-23 18:37 | NUR ---
RN CLOSING NOTES PT IN BED AT LOWEST AND LOCKED POSITION WITH SIDE RAILS UP X2, A/O X4, BREATHING EVEN AND UNLABORED, NO S/S OF PAIN OR DISTRESS NOTED AT THIS TIME, CONNER PICC IS PATENT AND INTACT, NOTED TO HAVE KLEBER DRAIN IN PLACE, SAFETY PRECAUTIONS IN PLACE, CALL LIGHT WITHIN REACH, ALL NEEDS ATTENDED TO, WILL ENDORSE TO GARDENER FLORIST RN FOR CONTINUITY OF CARE.
--- NOTE | 2018-06-23 19:57 | NUR ---
MS/RN OPENING NOTES RECEIVED PATIENT IN BED, AWAKE, ALERT, REPORTED PAIN OF 8/10, GRIMACE AND GUARDING, SKIN WARM TO TOUCH, ABLE TO VERBALIZE NEEDS, DISCUSSED PLAN OF CARE AND GOAL WHICH IS TO FEEL MUCH BETTER . CALL LIGHTS WITHIN REACH, BED LOCKED, WILL MONITOR. RECEIVED ENDORSEMENT FROM AM RN FOR GELA.
[2018-06-23 20:00] VITALS: BP 110/83
[2018-06-24] MEDS: ZOLPIDEM TARTRATE 5 MG TABLET PO PRN (00:59)
--- NOTE | 2018-06-24 00:59 | NUR ---
ms/rn notes patient requested for sleeping pill inability to relax.
[2018-06-24] MEDS: HYDROMORPHONE INJ 0.5 MG/0.5 ML SYRINGE IV PRN (03:25)
--- NOTE | 2018-06-24 03:25 | NUR ---
ms/rn notes severe pain reported in abdomen, grimace and guarding, administer dilaudid 1.5ml/1.5 mg ivp, to monitor pain relief.
[2018-06-24] MEDS: BLOOD SUGAR DIAGNOSTIC 1 EACH STRIP IN SCH ×3 (06:00→20:42)
--- NOTE | 2018-06-24 06:00 | NUR ---
MS/RN NOTES PATIENT AWAKE, ALERT, ABLE TO VERBALIZE NEEDS AT ALL TIMES. RESPIRATIONS EVEN AND UNLABORED. CALL LIGHTS WITHIN REACH. BED LOCKED. MONITORED FOR SAFETY. KEPT WARM AND COMFORTABLE.
[2018-06-24 07:20] LABS: BASOPHILS # (AUTO) 0.1 /CMM (0.0-0.2); BASOPHILS % (AUTO) 0.6 % (0.0-2.0); HEMATOCRIT 22 % (39-51); HEMOGLOBIN 7.5 g/dL (13.5-17.5); LYMPHOCYTES # (AUTO) 1.2 /CMM (0.8-4.8); LYMPHOCYTES % (AUTO) 12.4 % (20.0-44.0); MEAN CORPUSCULAR HGB CONC 34 g/dl (31.0-36.0); MEAN CORPUSCULAR VOLUME 92 fL (80-96); MONOCYTES # (AUTO) 0.9 /CMM (0.1-1.30); MONOCYTES % (AUTO) 9.8 % (2.0-12.0); NEUTROPHILS # (AUTO) 7.2 /CMM (1.8-8.9); NEUTROPHILS % (AUTO) 76.2 % (43.0-81.0); PLATELET COUNT (AUTO) 292 /CMM (150-450); RED BLOOD CELL COUNT(AUTO) 2.42 MIL/uL (4.5-6.0); WHITE BLOOD COUNT (AUTO) 9.4 K/uL (4.3-11.0)
--- NOTE | 2018-06-24 07:28 | NUR ---
MS RN OPENING NOTES RECEIVED PT AWAKE IN BED IN NO ACUTE SIGNS OF DISTRESS. A/O X4. ABLE TO MAKE NEEDS KNOWN, NO C/O PAIN OR DISCOMFORTS AT THIS TIME. ON ROOM AIR, BREATHING EVEN AND UNLABORED. CONNER PICC LINE INTACT AND PATENT. DRESSING ON ABDOMEN C/D/I. KLEBER DRAIN IN PLACE WITH 60 ML OUTPUT NOTED AND EMPTIED. SAFETY PRECAUTIONS IN PLACE. BED IN LOW LOCKED POSITION WITH SR UP X2. CALL LIGHT WITHIN REACH. REMINDED PT TO CALL FOR ASSISTANCE. WILL MONITOR ACCORDINGLY
[2018-06-24 08:00] VITALS: BP 116/75
[2018-06-24 08:11] LABS: CALCIUM, SERUM 7.2 mg/dL (8.5-10.1); CREATININE 0.3 mg/dL (0.6-1.3); MAGNESIUM 1.8 mg/dL (1.8-2.4); PHOSPHORUS 2.7 mg/dL (2.5-4.9); POTASSIUM 3.6 mmol/L (3.5-5.1)
[2018-06-24] MEDS: MULTIVITAMINS,THERAGRAN 1 UDTAB TABLET PO SCH (08:25)
[2018-06-24] MEDS: THIAMINE HCL 100 MG TABLET PO SCH (08:25)
[2018-06-24] MEDS: ENSURE CLEAR 237 ML LIQUID (MIX BERRY) PO SCH ×3 (08:26→17:27)
[2018-06-24] MEDS: ENOXAPARIN SODIUM 40 MG/0.4 ML DISP.SYRIN SQ SCH (08:28)
[2018-06-24] MEDS: HYDROMORPHONE INJ 2 MG/ML DISP.SYRIN IV PRN ×5 (09:16→20:59)
--- NOTE | 2018-06-24 09:17 | NUR ---
RN NOTES/PAIN MANAGEMENT PATIENT IN BED AWAKE AND NOTED GRIMACING WITH C/O ACHING PAIN ON HIS RIGHT ABDOMEN WITH SCALE OF 8/10, PRN DILAUDID 1.5MG IVP ADMINISTERED AT 0915. WILL CONTINUE TO MONITOR AND REASSESS PT.
--- NOTE | 2018-06-24 12:35 | NUR ---
RN NOTES/PAIN MANAGEMENT PATIENT IN BED AWAKE AND RESTING @ MODERTAE HIGH BACKREST POSITION. HE COMPLAINED OF ACHING PAIN ON HIS RIGHT ABDOMEN WITH SCALE OF 8/10, PRN DILAUDID 1.5MG IVP ADMINISTERED AT 1234. WILL CONTINUE TO MONITOR AND REASSESS PT
[2018-06-24] MEDS: PANTOPRAZOLE 40 MG VIAL IV SCH (15:23)
--- NOTE | 2018-06-24 15:42 | NUR ---
RN NOTES/PAIN MANAGEMENT PATIENT IN BED AWAKE AND RESTING @ MODERATE HIGH BACKREST POSITION. HE COMPLAINED OF ACHING PAIN ON HIS RIGHT ABDOMEN WITH SCALE OF 9/10, PRN DILAUDID 1.5MG IVP ADMINISTERED AT 1539. WILL CONTINUE TO MONITOR AND REASSESS PT
[2018-06-24 16:00] VITALS: BP 114/70
--- NOTE | 2018-06-24 16:39 | NUR ---
RN NOTES KLEBER DRAIN FLUIDS COLLECTED AND BROUGHT TO LAB AND LOG IN TO BODY FLUIDS LOG BOOK FOR CREATININE TEST. FANS CLERK IRENE ORDAZ.
[2018-06-24] MEDS: Magnesium 1GM/D5W 100ML PREMIX 100 ML IV SCH ×2 (18:34→20:01)
[2018-06-24] MEDS: ONDANSETRON HCL/PF 4 MG/2 ML VIAL IVP PRN (18:42)
--- NOTE | 2018-06-24 18:43 | NUR ---
RN NOTES/PAIN MANAGEMENT PATIENT IN BED AWAKE AND WATCHING TV. COMPLAINED OF ACHING PAIN ON HIS RIGHT ABDOMEN WITH SCALE OF 8/10, PRN DILAUDID 1.5MG IVP ADMINISTERED AT 1842. WILL CONTINUE TO MONITOR AND REASSESS PT
--- NOTE | 2018-06-24 19:00 | NUR ---
RN MS OPENING NOTES RECEIVED PATIENT IN BED AWAKE ALERT AND ORIENTED X4, RESPIRATIONS EVEN AND UNLABORED WITH EQUAL RISE AND FALL OF CHEST, DENIES ANY PAIN OR DISCOMFORT AT THIS TIME, KLEBER DRAIN INTACT AND PATENT, DRAINING WELL CLEAR YELLOW, EMPTIED AND CLOSED WITH PROPER SUCTION IN PLACE, URINAL AT BEDSIDE AND OFFERED, ORIENTED TO STAFF AND CALL LIGHT AND KEPT WITHIN REACH,BED ALARM IN PLACE PER PATIENT PREFERS TO HAVE IT ON AT ALL TIMES, RIGHT UPPER ARM PICC LINE INTACT AND PATENT, DRESSING CLEAN,DRY AND INTACT, FLUIDS OFFERED TOLERATED, ALL NEEDS ATTENDED AT THIS TIME, WILL CONTINUE TO MONITOR AND ATTEND TO NEEDS REMAINS COMFORTABLE AT THIS TIME. WILL CONTINUE HOURLY ROUNDING.
--- NOTE | 2018-06-24 19:07 | NUR ---
MS RN CLOSING NOTES PT IN BED AWAKE AND WATCHING TV. A/O X4. ABLE TO MAKE NEEDS KNOWN. ALL NEEDS AND CARE ATTENDED WELL. ON ROOM AIR, BREATHING EVEN AND UNLABORED. CONNER PICC LINE INTACT AND PATENT, IV MAGNESIUM @ 100ML/HR INFUSING AT THIS TIME. DRESSING ON ABDOMEN C/D/I. KLEBER DRAIN IN PLACE WITH 310 ML OUTPUT NOTED DURING THE DAY. SAFETY PRECAUTIONS IN PLACE. BED IN LOW LOCKED POSITION WITH SR UP X2. CALL LIGHT WITHIN REACH. REMINDED PT TO CALL FOR ASSISTANCE. WILL MONITOR ACCORDINGLY
[2018-06-24 20:00] VITALS: BP 104/72
--- NOTE | 2018-06-24 20:59 | NUR ---
RN MS NOTES PATIENT COMPLAINT OF PAIN TO RIGHT SIDE ABDOMEN 01/16 , COMPLAINT OF ACHY PAIN, REQUESTING FOR PAIN MEDICATION DILAUDID, VS TAKEN WNL.104/72,87,19,98.1,99%. DILAUDID PRN GIVEN ORDERED 1.5MG/0.75ML GIVEN ORDERED AND REST WASTED AND VERIFIED WITH ANOTHER RN. WILL CONTINUE TO MONITOR FOR EFFECTIVENESS, CALL LIGHT KEPT WITHIN REACH, REMINDED PATIENT TO USE CALL LIGHT AND TO NOT GET OOB UNASSISTED VERBALIZES HE UNDERSTANDS PLACED BED ALARM FOR SAFETY PRECAUTIONS, PER PATIENT LEAVE BED ALARM ON AT ALL TIMES.
[2018-06-25] MEDS: HYDROMORPHONE INJ 2 MG/ML DISP.SYRIN IV PRN ×6 (00:23→22:32)
--- NOTE | 2018-06-25 00:23 | NUR ---
RN MS NOTES PATIENT COMPLAINT OF PAIN TO RIGHT ABDOMEN SITE 9/10 ACHY PAIN REQUESTING FOR DILAUDID VS WNL 110/69,91,18,99%RA PRN DILAUDID GIVEN ORDERED 0.75ML/1.5MG REST WASTED AND VERIFIED WITH ANOTHER RN WILL CONTINUE TO MONITOR FOR EFFECTIVENESS. SAFETY PRECAUTIONS IN PLACE, LOW BED AND LOCKED, BED ALARM IN PLACE. CALL LIGHT KEPT WITHIN REACH
[2018-06-25] MEDS: ONDANSETRON HCL/PF 4 MG/2 ML VIAL IVP PRN ×2 (03:00→22:31)
--- NOTE | 2018-06-25 03:01 | NUR ---
RN MS NOTES PATIENT COMPLAINT OF PAIN 8/10 TO ABDOMEN AREA REQUESTING FOR DILAUDID AND ZOFRAN ZOFRAN GIVEN DILAUDID PRN GIVEN VS WNL 121/77,88,18,99%RA, DILAUDID 0.75ML GIVEN ORDERED REST WASTED AND VERRIFIED WITH ANOTHER RN. WILL CONTINUE TO MONITOR FOR EFFECTIVENESS CALL LIGHT KEPT WITHIN REACH SAFETY PREACAUTIONS IN PLACE, BED ALARM IN PLACE
[2018-06-25] MEDS: BLOOD SUGAR DIAGNOSTIC 1 EACH STRIP IN SCH ×3 (05:29→20:43)
--- NOTE | 2018-06-25 06:27 | NUR ---
RN MS CLOSING NOTES PATIENT IN BED AWAKE ALERT AND ORIENTED X 4, RESPIRATIONS EVEN AND UNLABORED, Q HOURLY ROUNDING DONE, PATIENT HAS PERIODS OF SLEEPING AND BEING ON CELL PHONE, PAIN NEEDS ATTENDED, KLEBER DRAIN INTACT, TOTAL OUTPUT 420 , CLEAR YELLOW THIN DRAINAGE, ABD DRESSING REMAINS INTACT, SACRAL DTI WITH MEPILEX INTACT, LEFT AND RIGHT ELBOW SKIN INTACT WITH MEPILEX INTACT, URINAL OFFERED , FLUID OFFERED, RIGHT UPPER ARM PICC LINE INTACT AND PATENT, BS 83 NO INSULIN NEEDED, ALL NEEDS ATTENDED AT THIS TIME, WILL CONTINUE TO MONITOR AND ENDORSE TO NEXT SHIFT, SAFETY PRECAUTIONS IN PLACE ,LOW BED AND LOCKED BED ALARM IN PLACE, CALL LIGHT KEPT WITHIN REACH, NO CHANGED THROUGHOUT NIGHT.
--- NOTE | 2018-06-25 07:28 | NUR ---
RN MS OPENING NOTES PATIENT IN BED AWAKE ALERT AND ORIENTED X 4, RESPIRATIONS EVEN AND UNLABORED. ON Q HOURLY ROUNDING. NO PAIN VERBALIZED AT THIS MOMENT. KLEBER DRAIN INTACT, CLEAR YELLOW THIN DRAINAGE. RIGHT UPPER ARM PICC LINE INTACT AND PATENT. SAFETY PRECAUTIONS IN PLACE; LOW BED AND LOCKED BED ALARM IN PLACE. KEPT CALL LIGHT WITHIN REACH. WILL CONTINUE TO MONITOR.
--- NOTE | 2018-06-25 07:54 | NUR ---
RN NOTES/PAIN MANAGEMENT PATIENT IN BED AWAKE AND NOTED GRIMACING WITH C/O ACHING PAIN ON HIS RIGHT ABDOMEN WITH SCALE OF 9/10, PRN DILAUDID 1.5MG IVP ADMINISTERED. WILL CONTINUE TO MONITOR AND WILL REASSESS PT.
[2018-06-25 08:00] VITALS: BP 113/75
[2018-06-25] MEDS: ENOXAPARIN SODIUM 40 MG/0.4 ML DISP.SYRIN SQ SCH (08:27)
[2018-06-25] MEDS: MULTIVITAMINS,THERAGRAN 1 UDTAB TABLET PO SCH (08:27)
[2018-06-25] MEDS: THIAMINE HCL 100 MG TABLET PO SCH (08:28)
[2018-06-25] MEDS: ENSURE CLEAR 237 ML LIQUID (MIX BERRY) PO SCH ×3 (08:29→16:57)
[2018-06-25 09:08] LABS: CALCIUM, SERUM 7.4 mg/dL (8.5-10.1); CREATININE 0.4 mg/dL (0.6-1.3); MAGNESIUM 1.8 mg/dL (1.8-2.4); PHOSPHORUS 2.7 mg/dL (2.5-4.9); POTASSIUM 3.6 mmol/L (3.5-5.1)
[2018-06-25 10:11] LABS: BASOPHILS # (AUTO) 0.1 /CMM (0.0-0.2); BASOPHILS % (AUTO) 0.7 % (0.0-2.0); EOSINOPHILS % (AUTO) 0.8 % (0.0-6.0); HEMATOCRIT 22 % (39-51); HEMOGLOBIN 7.6 g/dL (13.5-17.5); LYMPHOCYTES # (AUTO) 1.3 /CMM (0.8-4.8); MEAN CORPUSCULAR HGB CONC 34 g/dl (31.0-36.0); MEAN CORPUSCULAR VOLUME 92 fL (80-96); MONOCYTES % (AUTO) 10.2 % (2.0-12.0); NEUTROPHILS # (AUTO) 7.6 /CMM (1.8-8.9); NEUTROPHILS % (AUTO) 75.3 % (43.0-81.0); PLATELET COUNT (AUTO) 397 /CMM (150-450); RED BLOOD CELL COUNT(AUTO) 2.42 MIL/uL (4.5-6.0)
[2018-06-25] MEDS ORDERED: HYDROCODONE/APAP 5/325MG 1 EACH TABLET PO PRN (10:30)
--- NOTE | 2018-06-25 11:25 | NUR ---
MS/RN NOTE MS/RN NOTE THE RECEIVED REPORT FROM SULEMA SRINIVASAN. THE PATIENT IN BED. AWAKE. ALERT AND ORIENTED X4. IN ROOM AIR AND DENIES SOB. RESPIRATION REGULAR AND UNLABORED. PATIENT COMPLAINS OF ABDOMINAL PAIN 01/16. MID ABDOMINAL DRESSING INTACT WITH NO STRIKE THUR.KLEBER DRAIN IN PLACE AND NOTED WITH 55 ML SEROUS DRAINAGE. ABDOMEN SOFT AND NON-DISTENDED. THE PATIENT STATED THAT HE HAD BM X1 TODAY AM. RFA G 20 PATENT AND SALINE LOCKED. BED LOW AND LOCKED. SIDE RAILS UP X3. CALL LIGHT WITHIN REACH. WILL CONTINUE TO MONITOR.
--- NOTE | 2018-06-25 11:35 | NUR ---
MS/RN NOTE PRN PAIN MEDICATION GIVEN ORDERED.
--- NOTE | 2018-06-25 12:05 | NUR ---
MS/RN NOTE THE PATIENT VERBALIZED DILAUDID PAIN MEDICATION GIVEN AT 11.5 BEING EFFECTIVE DESPITE THE PATIENT RATED PAIN 4/10. THE PATIENT SAID THAT HE WILL WAIT FOR NORCO 10/325 MG TO TAKE AT 1435. WILL CONTINUE TO MONITOR THE PATIENT AND ADMINISTER THE MEDICATION PER PATIENT`S REQUEST AND MD ORDER.
[2018-06-25] MEDS: HYDROCODONE/APAP 10/325MG 1 EA TABLET PO PRN (14:36)
[2018-06-25] MEDS: PANTOPRAZOLE 40 MG VIAL IV SCH ×2 (15:00→16:16)
--- NOTE | 2018-06-25 15:40 | NUR ---
MS/RN NOTE THE PATIENT VERBALIZED NORCO 10/325 TO BE EFFECTIVE DESPITE PAIN LEVEL RATED 3/10. THE PATIENT VERBALIZED THAT HE WILL NOT TAKE ANY PAIN MEDICATION AT THIS TIME. WILL CONTINUE TO MONITOR THE PATIENT.
[2018-06-25 16:00] VITALS: BP 117/75
[2018-06-25] MEDS: PROSOURCE / PROSTAT (PYXIS) 30 ML UDC PO SCH (16:53)
--- NOTE | 2018-06-25 18:00 | NUR ---
MS/RN NOTE PANTROPAZOLE 40 NOT ABLE TO RETURN TO OMNICE, SO REFUSED TO THE CASSETTE IN MED ROOM CHARGE NURSE BERNADINE ORDAZ.
--- NOTE | 2018-06-25 19:03 | NUR ---
MS/RN NOTE THE PATIENT ALERT AND ORIENTED X4. IN ROOM AIR AND SATURATION IS AT 97%. DENIES SOB. RESPIRATION REGULAR AND UNLABORED. DENIES PAIN. MID ABDOMINAL DRESSING INTACT AND KLEBER DRAINED 380 ML SEROUS FLUID. ABDOMEN SOFT AND NON-DISTENDED. PATIENT TOLERATES DIET WELL. CONNER PICC LINE PATENT. BED LOW AND LOCKED. SIDE RAILS UP X3. CALL LIGHT WITHIN REACH. WILL ENDORSE TO BUSINESS EDUCATION INSTRUCTOR.
[2018-06-25] MEDS: IV D5/0.45 NACL 1,000 ML IV PRN (19:16)
--- NOTE | 2018-06-25 19:20 | NUR ---
MS RN OPENING NOTES: RECEIVED PT ON ROOM AIR AND IS TOLERATING WELL. FRIEND AT BEDSIDE AT THIS TIME. PT HAS CONNER PICC LINE AND IS BEING INFUSED WITH IV D5 1/2 NS AT 25M/HR. PT HAS KLEBER DRAIN ON L SIDE OF ABDOMEN WITH FLUID DRAINING. BED KEPT IN LOW, LOCKED POSITION, AND SIDE RAILS X 2UP. WILL CONTINUE TO MONITOR PT.
[2018-06-25 20:00] VITALS: BP 108/74
--- NOTE | 2018-06-25 22:45 | NUR ---
MS RN NOTES: PT COMPLAINING OF FEELING NAUSEOUS. PT WAS ADMINISTERED ZOFRAN. PT ALSO COMPLAINING OF 8/10 ABDOMINAL PAIN. PT WAS ADMINISTERED DILAUDID VIA IV . WILL CONTINUE TO MONITOR.
[2018-06-26] MEDS: HYDROCODONE/APAP 10/325MG 1 EA TABLET PO PRN ×2 (00:01→20:21)
[2018-06-26 05:51] VITALS: BP 113/73
[2018-06-26] MEDS: HYDROMORPHONE INJ 2 MG/ML DISP.SYRIN IV PRN ×5 (05:57→21:46)
[2018-06-26 06:21] LABS: BASOPHILS # (AUTO) 0.1 /CMM (0.0-0.2); BASOPHILS % (AUTO) 1.1 % (0.0-2.0); EOSINOPHILS % (AUTO) 1.4 % (0.0-6.0); HEMATOCRIT 21 % (39-51); HEMOGLOBIN 7.2 g/dL (13.5-17.5); LYMPHOCYTES # (AUTO) 1.7 /CMM (0.8-4.8); LYMPHOCYTES % (AUTO) 17.3 % (20.0-44.0); MEAN CORPUSCULAR HGB CONC 34 g/dl (31.0-36.0); MEAN CORPUSCULAR VOLUME 90 fL (80-96); MONOCYTES # (AUTO) 1.1 /CMM (0.1-1.30); MONOCYTES % (AUTO) 11.8 % (2.0-12.0); NEUTROPHILS # (AUTO) 6.5 /CMM (1.8-8.9); NEUTROPHILS % (AUTO) 68.4 % (43.0-81.0); PLATELET COUNT (AUTO) 434 /CMM (150-450); RED BLOOD CELL COUNT(AUTO) 2.34 MIL/uL (4.5-6.0); WHITE BLOOD COUNT (AUTO) 9.5 K/uL (4.3-11.0)
[2018-06-26] MEDS: BLOOD SUGAR DIAGNOSTIC 1 EACH STRIP IN SCH ×3 (06:31→20:09)
[2018-06-26 06:37] LABS: CALCIUM, SERUM 7.5 mg/dL (8.5-10.1); CREATININE 0.4 mg/dL (0.6-1.3); MAGNESIUM 1.6 mg/dL (1.8-2.4); PHOSPHORUS 2.9 mg/dL (2.5-4.9); POTASSIUM 3.2 mmol/L (3.5-5.1)
--- NOTE | 2018-06-26 07:36 | NUR ---
MS RN OPENING NOTE RECEIVED PT IN BED, ALERT AND ORIENTED X4. DENIES N/V, CHEST PAIN, SOB. RATES PAIN IN THE ABD 4/10 AND TOLERABLE AT THIS TIME. BREATHING IS EVEN AND UNLABORED ON ROOM AIR. RIGHT UPPER ARM PICC LINE IS INFUSING D5 1/2 NS @ 25ML/HR WITHOUT REDNESS OR SWELLING. ALL NEEDS ATTENDED TO. BED IS LOCKED AND IN LOWEST POSITION, SIDE RAILS UP X2, BED ALARM ON, BED IS LOCKED AND IN LOWEST POSITION, SIDE RAILS UP X2, CALL LIGHT AND POSSESSIONS WITHIN REACH.
--- NOTE | 2018-06-26 07:46 | NUR ---
MS RN CLOSING NOTES: ALL NEEDS WERE ATTENDED AND ANTICIPATED FOR. PT KEPT CLEAN, DRY, AND COMFORTABLE .BLOOD SUGAR THIS AM WAS 89. NO INSULIN WAS ADMINISTERED. PT HAS CONNER PICC LINE AND IS BEING INFUSED WITH IV D5 1/2 NS AT 25ML/HR. BED KEPT IN LOW, LOCKED POSITION, AND SIDE RAILS X 2UP. ENDORSED TO AM NURSE FOR GELA.
[2018-06-26 08:00] VITALS: BP 112/79
[2018-06-26] MEDS: ENSURE ENLIVE 237 ML LIQUID (VANILLA) PO SCH ×2 (09:00→17:51)
[2018-06-26] MEDS: PROSOURCE / PROSTAT (PYXIS) 30 ML UDC PO SCH ×3 (09:13→17:52)
[2018-06-26] MEDS: ONDANSETRON HCL/PF 4 MG/2 ML VIAL IVP PRN ×2 (09:13→17:52)
[2018-06-26] MEDS: MULTIVITAMINS,THERAGRAN 1 UDTAB TABLET PO SCH (09:13)
[2018-06-26] MEDS: THIAMINE HCL 100 MG TABLET PO SCH (09:13)
[2018-06-26] MEDS: ENSURE CLEAR 237 ML LIQUID (MIX BERRY) PO SCH ×3 (09:14→17:51)
[2018-06-26] MEDS: ENOXAPARIN SODIUM 40 MG/0.4 ML DISP.SYRIN SQ SCH (09:16)
[2018-06-26] MEDS: Magnesium 1GM/D5W 100ML PREMIX 100 ML IV SCH ×5 (10:09→16:52)
[2018-06-26] MEDS: POTASSIUM CHLORIDE 20 MEQ TAB.PRT.SR PO SCH ×2 (10:09→11:18)
[2018-06-26] MEDS ORDERED: POTASSIUM CHLORIDE 20 MEQ TAB.PRT.SR PO ONE ×2 (10:30→13:00)
--- NOTE | 2018-06-26 11:15 | NUR ---
MS RN NOTE PER PHARMACY ([facility]) THEY SPOKE WITH DR. MARKS REGARDING ADDITIONAL MG AND K ORDERS. PER PHARMACY DR. MARKS DOES WANT TO GIVE ADDITIONAL DOSES OF MG AND K.
--- NOTE | 2018-06-26 11:30 | NUR ---
MS RN NOTE PER DR. MARKS SHE DOES WANT TO GIVE A TOTAL OF 5MG OF MG IV AND 80 MEQ OF K PO.
[2018-06-26] MEDS: INSULIN REGULAR, HUMAN 100 UNIT/ML 3 ML VIAL SQ PRN ×2 (13:23→21:31)
[2018-06-26] MEDS: PANTOPRAZOLE 40 MG VIAL IV SCH (15:22)
[2018-06-26 16:00] VITALS: BP 114/75
--- NOTE | 2018-06-26 16:15 | NUR ---
MS RN NOTE REPORT GIVEN TO SULEMA FINK FOR TRANSFER OF CARE.
--- NOTE | 2018-06-26 16:44 | NUR ---
4680 ASSUMED CARE OF PATIENT. PATIENT ALERT AND ORIENTED WITH NO SIGNS OF DISTRESS OR DISCOMFORT AT THIS TIME. PATIENT UP IN CHAIR WITH VISITOR AT BEDSIDE. PATIENT DENIES PAIN AT THIS TIME. WILL CONTINUE TO MONITOR THROUGHOUT SHIFT. DANAE DEL REAL RN
--- NOTE | 2018-06-26 18:52 | NUR ---
1700 PATIENT HAS PAIN 9/10 IN ABDOMEN. PATIENT GIVEN DILAUDID 1.5MG IVP PER DR ORDERS FOR PAIN. PATIENT HAS NAUSEA. PATIENT GIVEN ZOFRAN IVP PER DR ORDERS FOR NAUSEA. 1820 PATIENT HAS PAIN 4/10 IN ABDOMEN. PATIENT DENIES NAUSEA AT THIS TIME. 1845 PATIENT UP WITH PT. PATIENT HAS NO SIGNS OF DISTRESS OR DISCOMFORT AT THIS TIME. WILL CONTINUE TO MONITOR.
--- NOTE | 2018-06-26 19:16 | NUR ---
MS RN OPENING NOTES: RECEIVED PT AND IS AWAKE AND IN BED LAYING DOWN. PT ALSO COMPLAINING OF PAIN. PT JUST GOT DONE WITH PHYSICAL THERAPY. PT HAS KLEBER DRAIN AND IS DRAINING SANGUINEOUS FLUID. MIDLINE INCISIONS NOTED. PT HAS FRIEND AT BEDSIDE. PT ON ROOM AIR AND TOLERATING WELL. PT HAS PICC LINE AND IS BEING INFUSED WITH IV D5 1/2 NS AT 25ML/HR. BED KEPT IN LOW, LOCKED POSITION, AND SIDE RAILS X 2UP. WILL CONTINUE TO MONITOR PT.
[2018-06-26 20:00] VITALS: BP 112/73
--- NOTE | 2018-06-26 20:24 | NUR ---
MS RN NOTES: PT COMPLAINING OF 8/10 CRAMPING PAIN IN HIS L AND R ABDOMINAL AREA. PT WAS ADMINISTERED NORCO 10 PO. WILL CONTINUE TO MONITOR PT.
--- NOTE | 2018-06-26 21:31 | NUR ---
MS RN NOTES: NON ADMIN INSULIN. BLOOD SUGAR WAS 92.
--- NOTE | 2018-06-26 21:57 | NUR ---
MS RN NOTES: PT COMPLAINING OF 8/10 SHARP PAIN AFTER BEING REPOSITIONED AND DRINKING ENSURE. PT WAS ADMINISTERED DILAUDID 1.5MG IV. WILL CONTINUE TO MONITOR PT.
[2018-06-27] MEDS: HYDROMORPHONE INJ 2 MG/ML DISP.SYRIN IV PRN ×4 (01:57→12:27)
[2018-06-27] MEDS: ONDANSETRON HCL/PF 4 MG/2 ML VIAL IVP PRN ×2 (01:57→09:16)
--- NOTE | 2018-06-27 02:04 | NUR ---
MS RN NOTES: PT COMPLAINING OF 9/10 AB PAIN AFTER FINISHING ENSURE. PT WAS ADMINISTERED ZOFRAN 4MG IV AND DILAUDID 1.5MG IV. WILL CONTINUE TO MONITOR.
[2018-06-27] MEDS: BLOOD SUGAR DIAGNOSTIC 1 EACH STRIP IN SCH ×2 (05:16→12:36)
[2018-06-27] MEDS ORDERED: DEXTROSE 50%-WATER 50 ML DISP.SYRIN IV PRN (06:00)
[2018-06-27] MEDS ORDERED: INSULIN REGULAR, HUMAN 100 UNIT/ML 3 ML VIAL SQ PRN (06:00)
[2018-06-27] MEDS ORDERED: ACETAMINOPHEN 325 MG TABLET PO PRN (06:00)
[2018-06-27] MEDS ORDERED: ALBUMIN 25% 25 GM in PREMIX 1 EA IV SCH (06:00)
[2018-06-27] MEDS ORDERED: Magnesium 1GM/D5W 100ML PREMIX PIGGYBACK IV ONE (06:00)
[2018-06-27] MEDS ORDERED: *INSULIN REGULAR(HUMULIN R)HUM 100 UNIT/ML VIAL SQ PRN (06:00)
--- NOTE | 2018-06-27 06:39 | NUR ---
MS RN NOTES: DR. HUNTER AT BEDSIDE.
[2018-06-27 06:42] VITALS: BP 111/62
--- NOTE | 2018-06-27 07:00 | NUR ---
RN OPENING NOTES RECEIVED PATIENT IN BED RESTING. A/OX3, ABLE TO MAKE NEEDS KNOWN. NOT IN ANY FORM OF DISTRESS, NO SOB. DENIED ANY PAIN OR DISCOMFORT. IV ACCESS INTACT AND PATENT. KLEBER DRAIN IN PLACE, INTACT AND DRAINING. KEPT PATIENT SAFE AND COMFORTABLE. BED IN LOW/LOCKED POSITION, SEMIFOWLERS. SIDERAILS UPX2, CALL LIGHT IN REACH. WILL CONTINUE TO MONITOR ACCORDINGLY.
[2018-06-27] MEDS ORDERED: BLOOD SUGAR DIAGNOSTIC 1 EACH STRIP VI SCH (07:30)
--- NOTE | 2018-06-27 07:42 | NUR ---
MS RN CLOSING NOTES: ALL NEEDS WERE ATTENDED AND ANTICIPATED FOR. PT KEPT CLEAN, DRY, AND COMFORTABLE. PT RESTING COMFORTABLY IN BED AT THIS TIME. NO SOB NOTED. PT HAS CONNER PICC LINE AND IS BEING INFUSED WITH IV D5 1/2 NS AT 25ML/HR. PT HAS KLEBER DRAIN AND OUTPUT WAS 435ML. BED KEPT IN LOW, LOCKED POSITION, AND SIDE RAILS X 2UP. ENDORSED TO AM NURSE FOR GELA.
[2018-06-27 08:00] VITALS: BP 114/70
--- NOTE | 2018-06-27 08:00 | NUR ---
RN NOTES OFFERED TO REPOSITION PATIENT. PATIENT SAID "I JUST DID". REMINDED TO REPOSITION EVERY 2HRS TO PREVENT ANY SKIN PROBLEMS.
[2018-06-27 08:09] LABS: BASOPHILS # (AUTO) 0.2 /CMM (0.0-0.2); BASOPHILS % (AUTO) 1.3 % (0.0-2.0); EOSINOPHILS % (AUTO) 1.2 % (0.0-6.0); HEMATOCRIT 22 % (39-51); HEMOGLOBIN 7.2 g/dL (13.5-17.5); LYMPHOCYTES % (AUTO) 8.2 % (20.0-44.0); MEAN CORPUSCULAR HGB CONC 33 g/dl (31.0-36.0); MEAN CORPUSCULAR VOLUME 91 fL (80-96); MONOCYTES % (AUTO) 8.7 % (2.0-12.0); NEUTROPHILS # (AUTO) 9.6 /CMM (1.8-8.9); NEUTROPHILS % (AUTO) 80.6 % (43.0-81.0); PLATELET COUNT (AUTO) 531 /CMM (150-450); RED BLOOD CELL COUNT(AUTO) 2.39 MIL/uL (4.5-6.0); WHITE BLOOD COUNT (AUTO) 11.9 K/uL (4.3-11.0)
[2018-06-27 08:27] LABS: CALCIUM, SERUM 7.4 mg/dL (8.5-10.1); CREATININE 0.4 mg/dL (0.6-1.3); MAGNESIUM 1.9 mg/dL (1.8-2.4); POTASSIUM 4.1 mmol/L (3.5-5.1)
[2018-06-27] MEDS ORDERED: SOD FERRIC GLUC 125 MG in IV NS 0.9% 100 ML IV SCH (09:00)
[2018-06-27] MEDS: PANTOPRAZOLE 40 MG VIAL IV SCH (09:22)
[2018-06-27] MEDS: THIAMINE HCL 100 MG TABLET PO SCH (09:23)
[2018-06-27] MEDS: MULTIVITAMINS,THERAGRAN 1 UDTAB TABLET PO SCH (09:23)
[2018-06-27] MEDS: ENOXAPARIN SODIUM 40 MG/0.4 ML DISP.SYRIN SQ SCH (09:24)
--- NOTE | 2018-06-27 09:30 | NUR ---
EMPTIED KLEBER DRAIN, OUTPUT 100CC. KLEBER DRAIN DEFLATED FOR SUCTION. WILL MONITOR ACCORDINGLY.
[2018-06-27] MEDS: PROSOURCE / PROSTAT (PYXIS) 30 ML UDC PO SCH ×2 (09:33→12:29)
[2018-06-27] MEDS: ENSURE CLEAR 237 ML LIQUID (MIX BERRY) PO SCH ×2 (09:34→12:29)
--- NOTE | 2018-06-27 10:00 | NUR ---
TURNED AND REPOSITIONED PATIENT. TOLERATED WELL
[2018-06-27] MEDS ORDERED: ENOX40DI SQ (10:29)
[2018-06-27] MEDS ORDERED: Thiamine HCL PO (10:29)
--- NOTE | 2018-06-27 10:53 | NUR ---
EMPTIED KLEBER DRAIN, OUTPUT 80CC. KLEBER DRAIN DEFLATED FOR SUCTION. WILL MONITOR ACCORDINGLY.
[2018-06-27] MEDS: Z GUARD REMEDY 2 OZ OINT TP PRN (12:31)
[2018-06-27] MEDS: MINERAL OIL/PETROLATUM,WHITE 120 GM JAR TP PRN (12:52)
--- NOTE | 2018-06-27 13:56 | NUR ---
EMPTIED KLEBER DRAIN, OUTPUT 100CC. KLEBER DRAIN DEFLATED FOR SUCTION. WILL MONITOR ACCORDINGLY. Addendum: 06/27/18 at 1403 by ANGEL LE TAUGHT PATIENT HOW TO EMPTY KLEBER DRAIN, PATIENT RETURNED DEMO, PATIENT EMPTIED IT AND MADE SURE DRAIN IS DEFLATED FOR SUCTION.
--- NOTE | 2018-06-27 14:00 | NUR ---
TURNED AND REPOSITIONED PATIENT FACING THE DOOR.
[2018-06-27 16:00] VITALS: BP 112/74
--- NOTE | 2018-06-27 16:00 | NUR ---
TURNED AND REPOSITIONED PATIENT.
--- NOTE | 2018-06-27 16:10 | NUR ---
WOUND CARE RENDERED
--- NOTE | 2018-06-27 16:30 | NUR ---
EMPTIED KLEBER DRAIN, 70CC OUTPUT. KLEBER DRAIN KEPT DEFLATED FOR SUCTION.
--- NOTE | 2018-06-27 17:30 | NUR ---
RN NOTES DISCHARGED INSTRUCTIONS GIVEN, TO FOLLOW UP WITH PCP AND DR HUNTER (PROVIDED WITH MD's CONTACT NUMBER) IN A WEEK, TO TAKE PRESCRIBED MEDS ORDERED, HOME HEALTH INFO WAS GIVEN AND PROVIDED WITH CONTACT NUMBER, AND REMINDED PATIENT TO TURN AND REPOSITION EVERY 2 HRS FOR PREVENTION OF SKIN BREAKDOWN. DC PAPERWORK, EXITCARE AND EDUCATIONAL MATERIALS/RESOURCES GIVEN. PATIENT VERBALIZED UNDERSTANDING.
--- NOTE | 2018-06-27 18:00 | NUR ---
DISCHARGED PATIENT IN STABLE CONDITION PICKED UP BY BROTHER, ACCOMPANIED TO THE LOBBY BY ASHU VARGHESE VIA WHEELCHAIR. DC INSTRUCTIONS GIVEN, VERBALIZED UNDERSTANDING. RETURNED DEMONSTRATION DONE ON EMPTYING THE KLEBER DRAIN, PATIENT EMPTIED AND DEFLATED JPDRAIN FOR SUCTION. PATIENT DISCHARGED HOME WITH HOME HEALTH FOR KLEBER DRAIN MANAGEMENT. DC PAPERWORK AND PRESCRIPTION GIVEN TO PATIENT. REMOVED PICC LINE, CATHETER TIP INTACT, APPLIED PRESSURE, NO BLEEDING, NO COMPLICATIONS. REMOVED NAMEBAND. SKIN PHOTOS TAKEN AND PLACED IT IN THE CHART.
== END 2018-06-27 18:15 | disposition home health service (06) | DRG 230 ==
LOC: TELE-TD 16:29 → MEDSG2 17:13 → MED 06-18 12:11
PROVIDERS: ADMIT Nurse Practitioner Acute Care; ATTEND Registered Nurse
PROC: B548ZZA Ultrasonography of Superior Vena Cava, Guidance (ICD-10-PCS; principal; 2018-06-15)
PROC: 02HV33Z Insertion of Infusion Device into Superior Vena Cava, Percutaneous Approach (ICD-10-PCS; principal; 2018-06-15)
PROC: 0DTB4ZZ Resection of Ileum, Percutaneous Endoscopic Approach (ICD-10-PCS; 2018-06-17)
PROC: 0DTK4ZZ Resection of Ascending Colon, Percutaneous Endoscopic Approach (ICD-10-PCS; 2018-06-17)
PROC: 30233N1 Transfusion of Nonautologous Red Blood Cells into Peripheral Vein, Percutaneous Approach (ICD-10-PCS; 2018-06-17)
DX: K50.112 Crohn's disease of large intestine with intestinal obstruction (principal); E43 Unspecified severe protein-calorie malnutrition; E87.8 Other disorders of electrolyte and fluid balance, not elsewhere classified; Z86.711 Personal history of pulmonary embolism; Z86.718 Personal history of other venous thrombosis and embolism; D63.8 Anemia in other chronic diseases classified elsewhere; D72.829 Elevated white blood cell count, unspecified; E02 Subclinical iodine-deficiency hypothyroidism; J98.11 Atelectasis; R60.0 Localized edema; E83.42 Hypomagnesemia; E77.8 Other disorders of glycoprotein metabolism
CPT/HCPCS: 36415; 36569; 71045-TC; 72100-TC; 73560-TC; 74018; 74250-TC; 80048-TC; 80053-TC; 80061-TC; 82040-TC; 82565-TC; 82962-TC; 83540-TC; 83735-TC; 84100-TC; 84134-TC; 84439-TC; 84443-TC; 84478-TC; 85025-TC; 85610-TC; 86850-TC; 86921-TC; 87081-TC; 88307-TC; 89051-TC; 97110-TC; 97112-TC; 97116-TC; 97530-TC; A4216; A6253; A6402; C1751; C9113; G0378; J0690; J1100; J1170; J1650; J1815; J2175; J2250; J2405; J2704; J2710; J2765; J2916; J3010; J3475; J3480; J3490; J7030; J7040; J7060; P9016-BL; P9047; Q9963